=== PATIENT | male | born 1955 | race Caucasian/White ===

== ENCOUNTER 2017-06-27 07:04 | Inpatient (IN) ==
[2017-06-27] MEDS ORDERED: CeFAZolin Syr 2,000MG/20 ML 2,000 MG/20 ML SYRINGE IVPB ONE (07:19)
[2017-06-27] MEDS ORDERED: Albuterol 2.5 MG/3 ML NEBULIZER IH ONE (07:19)
[2017-06-27] MEDS ORDERED: Lidocaine -MPF 1% 2 ML VIAL ID ONE (07:19)
[2017-06-27] MEDS ORDERED: Heparin 1,000 UNITS/500 mL NS 1,000 ML ONE (07:21)
--- NOTE | 2017-06-27 07:28 | History & Physical Report ---
Date of Encounter: 06/27/17 Time of Encounter: 07:28
[2017-06-27] MEDS ORDERED: Ringers Solution, Lactated 1,000 ML IVC SCH (07:30)
[2017-06-27] MEDS ORDERED: Ketamine *HR* 500 MG/10 ML MDV ONE (07:32)
[2017-06-27] MEDS ORDERED: *HR* Propofol 200 MG/20 ML VIAL IVP ONE (07:32)
[2017-06-27] MEDS ORDERED: Lidocaine -MPF 2% 2 ML VIAL ONE ×4 (07:33→13:08)
[2017-06-27] MEDS ORDERED: *HR* Rocuronium Bromide 50 MG/5 ML VIAL ONE ×3 (07:33→13:09)
--- NOTE | 2017-06-27 07:42 | Anesthesia Evaluation PreOp ---
Date of Encounter: 06/27/17 Time of Encounter: 07:39 - Past History Planned Operation: left fem-pop Cardiac History: [place], HTN, Hyperlipidemia, Cardiac Surgery (CABG 1994), Other ( PAD) Pulmonary History: Smoker DIRECTOR CLINICAL DATA History: Denies Any Significant HX Other Medical History: Diabetes Type II Anesthesia History: No Prior Anesthetic Complications, Past Anesthesia Alcohol Use: none Drug use: none Medications and Allergies Tramadol HCl [Ultram] 50 mg PO QID PRN 05/24/17 [History] Aspirin [Ecotrin] 325 mg PO DAILY 06/16/17 [History] Carvedilol [Coreg] 25 mg PO BID 06/16/17 [History] Clopidogrel [Plavix] 75 mg PO DAILY 06/16/17 [History] Divalproex (12 HR) [Depakote (12 HR)] 500 mg PO DAILY 06/16/17 [History] Donepezil [Aricept] 10 mg PO DAILY 06/16/17 [History] Folic Acid 1 mg PO DAILY 06/16/17 [History] Furosemide [Lasix] 40 mg PO DAILY 06/16/17 [History] Insulin Glargine,Hum.rec.anlog [Lantus Solostar] 46 unit SQ HS 06/16/17 [History ] Isosorbide MONOnitrate (24 HR) [Imdur] 60 mg PO DAILY 06/16/17 [History] Lisinopril [Zestril] 5 mg PO DAILY 06/16/17 [History] Loratadine [Claritin] 10 mg PO DAILY 06/16/17 [History] Memantine HCl [Namenda Xr] 28 mg PO DAILY 06/16/17 [History] Nitroglycerin [Nitrostat] 0.4 mg SL DAILY PRN 06/16/17 [History] Ranitidine HCl [Zantac] 300 mg PO HS 06/16/17 [History] Sertraline [Zoloft] 100 mg PO DAILY 06/16/17 [History] Simvastatin [Zocor] 40 mg PO HS 06/16/17 [History] SitaGLIPtin [Januvia] 100 mg PO DAILY 06/16/17 [History] 3 Allergy/AdvReac Type Severity Reaction Status Date / Time No Known Allergies Allergy Verified 05/24/17 10:04 - Meds/Allergy Pre-op Review Medications Reviewed: Yes Allergies Reviewed: Yes Beta Blockers on Current Med List: Yes If Beta Blockers taken, Date/Time (Last Dose taken): today 0600hrs Anesthesia Results - Labs Laboratory Tests 03/07/17 06/07/17 06/07/17 14:30 10:24 10:24 Hgb Hct Plt Count PT 10.7 INR 1.0 APTT 25.4 L Sodium 138 Potassium 4.0 BUN 19 Creatinine 0.90 Hemoglobin A1c 6.5 H 06/07/17 10:24 Hgb 11.7 L Hct 35.1 L Plt Count 168 PT INR APTT Sodium Potassium BUN Creatinine Hemoglobin A1c - Imaging EKG: report reviewed (SINUS TACHYCARDIA RIGHT BUNDLE BRANCH BLOCK INFERIOR MYOCARDIAL INFARCTION, PROBABLY OLD) Additional studies: Echo 2014: LVEF 45%, hypokinesia lv, mild AR stress test 2017: large fixed inferior defect, negative for ischemia Anesthesia Exam Selected Entries 06/27/17 07:23 Temperature 99.0 F Pulse Rate 87 Respiratory Rate 16 Blood Pressure 130/78 O2 Sat by Pulse Oximetry 98 Weight: 107kg NPO (# of Hours): 8 - HEENT Pupil (Motor): EOMI Mallampati: II Teeth: Missing Oral Opening: Greater than 3 - DIRECTOR CLINICAL DATA LOC: Oriented DIRECTOR CLINICAL DATA Motor: Normal RUE, Normal LUE, Normal RLE, Normal LLE, Normal Face DIRECTOR CLINICAL DATA Sensory: Normal: RUE, LUE, RLE, LLE, Face - Cardiac Rhythm: Regular Murmur: None - Pulmonary Breath Sounds: bilateral Clear Respiratory Effort: Symmetrical Anesthesia Assess/Plan ASA Score: 3 Modified [place] Scale for Level of Consciousness: Cooperative, oriented, and tranquil Anesthetic Plan: General Monitoring Plan: Standard Monitors, A-Line Recovery Plan: PACU (discussed GA, lines and possible need for blood, agrees to proceed)
[2017-06-27] MEDS ORDERED: *HR* Succinylcholine 200 MG/10 ML VIAL IVP ONE (07:46)
[2017-06-27 07:55] LABS: Hemoglobin A1C 5.7 %
[2017-06-27] MEDS ORDERED: *HR* Midazolam HCl 2 MG/2 ML VIAL ONE (08:07)
[2017-06-27] MEDS ORDERED: *HR* FentaNYL (PF) 100 MCG/2 ML VIAL ONE (08:08)
[2017-06-27] MEDS ORDERED: Dexamethasone 4 MG/ML VIAL ONE (08:31)
[2017-06-27] MEDS ORDERED: *HR* Magnesium Sulfate 1 GM/2 ML VIAL ONE ×2 (08:46→12:08)
[2017-06-27] MEDS ORDERED: Esmolol 100 MG/10 ML VIAL IVP ONE (09:38)
[2017-06-27] MEDS ORDERED: *HR* Labetalol 20 MG/4 ML SYRINGE IVP PRN ×2 (09:43→17:55)
[2017-06-27] MEDS ORDERED: *HR* HYDROmorphone (PF) 1 MG/ML SYRINGE IVP PRN (09:43)
[2017-06-27] MEDS ORDERED: *HR* Promethazine 25 MG/ML VIAL IVP PRN (09:43)
[2017-06-27] MEDS ORDERED: *HR* Heparin 5,000 UNIT/ML VIAL ONE ×2 (10:12→12:21)
[2017-06-27] MEDS ORDERED: Ondansetron 4 MG/2 ML VIAL ONE (10:19)
[2017-06-27] MEDS ORDERED: Heparin 1,000 UNITS/500 mL NS 1,500 ML ONE (10:36)
[2017-06-27] MEDS ORDERED: Acetaminophen IV 1,000 MG/100 ML INFUS..BTL ONE (11:13)
[2017-06-27] MEDS ORDERED: *HR* Phenylephrine 10 MG/ML VIAL ONE (12:16)
[2017-06-27] MEDS ORDERED: *HR* HYDROmorphone 2 MG/ML SYRINGE ONE (13:49)
[2017-06-27] MEDS ORDERED: Ketorolac 30 MG/ML VIAL ONE (15:14)
[2017-06-27] MEDS ORDERED: Neostigmine Methylsulfate 3 MG/3 ML SYRINGE ONE (15:15)
--- NOTE | 2017-06-27 15:35 | Anesthesia Procedures ---
Date of Encounter: 06/27/17 Time of Encounter: 08:20 Procedures: Anesthesia - Arterial Line Consent obtained: written consent Time out performed: Yes Sedation: Versed (mg): 2 Sedation: Fentanyl (mcg): 100 Supplemental Oxygen via Nasal Cannula (L/min): 15 (GETA) Size (Gauge): 20 Length (inches): 1 3/4 Technique Used: sterile prep, guide wire technique, direct puncture technique Post-Procedure: line taped into place, dry sterile dressing placed Patient tolerated procedure: well, no complications Complications: none Site: Radial L Vitals: see anesthetic record
--- NOTE | 2017-06-27 16:04 | Operative Note ---
Date of procedure: 06/27/17 Pre-op diagnosis: PAD/non healing ulcer Post-op diagnosis: same Procedure: left iliac angiogram left iliac stent angioplasty with 7 x 80 mm self expanding stent with post stent balloon dilatation with 8 x 40 mm balloon. left tibial peroneal trunk and post tibial endarterectomy with bovine patch angioplasty left RECLAIMER endarterectomy with bovine patch angiolasty left femoral--> tibial peroneal trunk bypass with 6 mm PTFE Distaflo Complications: none Anesthesia: GETA Surgeon: Lance Bernstein Estimated blood loss (cc): 250 Specimen: none Condition: stable Disposition: PACU Procedure in Detail: History Scot Noyola is a 62-year-old white male who was seen in the outpatient clinic for nonhealing wound and ischemic pain in the left foot. He went on to have an angiogram and a right iliac artery stent angioplasty. High-grade left iliac lesion was noted as well as left superficial femoral and popliteal artery occlusive disease and tibial artery disease. He now comes to the operating room for left lower extremity revascularization to salvage the left lower extremity. Procedure After informed consent was obtained the patient was taken the operating room. General endotracheal anesthesia was established under arterial line pressure monitoring. The left lower extremity abdomen and right groin were sterilely prepped and draped. A timeout protocol was observed. An incision was made in the left groin to dissect and control the femoral system. The patient had a relatively deep vessel. The vessel at the femoral level and bifurcation was found to be densely calcified. No palpable pulse could be felt through the calcific vessel. An extensive dissection was performed and extension was made up into the external iliac artery. A limited area of soft tissue was noted on the anterior surface of the distal common femoral artery. It was judged that this would be an appropriate puncture site for the angiogram. An 18-gauge needle was then used to puncture the distal aspect of the anterior aspect of the left common femoral artery. A guidewire was inserted and this was followed by 6 [place] sheath and dilator. The dilator was removed and the sheath was aspirated and flushed. Under fluoroscopic control wires were then used to pass through the critical stenosis in the proximal external iliac and mid iliac area. After the wires were manipulated and confirmed that the true lumen was reentered distally patient was heparinized. The area was predilated with a 6 mm diameter balloon. After this was done a stent was selected. The stent was a 7 by 80 mm self-expanding stent. After deploying the stent and 8 x 40 balloon was inserted into the stent and gently distended the stent so it was fully expanded throughout its length. A completion Becki Janusz was performed which showed a widely patent left common and external iliac artery with a widely patent stent angioplasty site. Attention was then directed to the distal circulation. A [id number] popliteal incision was made to expose the below the knee popliteal and tibial peroneal trunk and tibial bifurcation vessels. This area showed marked inflammation. There is also signs of chronic venous insufficiency with subcutaneous edema. After a very labored and difficult dissection the vessels were controlled. There was marked disease in the popliteal and proximal tibial peroneal trunk. An endarterectomy was then performed of the tibial peroneal trunk and proximal posterior tibial artery through a longitudinal incision. After all the plaque was removed and appropriate backbleeding established from the posterior tibial artery a bovine pericardial patch angioplasty was performed over this area. With this accomplished a 6 mm PTFE graft that was a Distaflo variant was passed through a subsartorial space. The anastomosis was then made distally over the area of the just created endarterectomy and bovine pericardial patch angioplasty of the tibial peroneal trunk and posterior tibial artery. The area was inspected hemostasis and the graft was clamped. All the surrounding small vessels of the below-knee popliteal area were released to allow flow. Attention was then directed to the groin. A longitudinal arteriotomy was made over the common femoral artery. The vessel had severe and critical calcific plaque formation. Some of the plaque was actually loose. It was a extensive disease. The complete vessels not able to be endarterectomized due to the exposure limitation and the external iliac artery stent. However the orifice of the profunda femoris and superficial femoral artery were also endarterectomized. After the endarterectomy was performed and all loose debris was removed a bovine pericardial patch angioplasty was performed over the common femoral artery. The proximal anastomosis was then performed over this area of the patch angioplasty. This was sewn in end to side fashion using 6-0 Prolene suture. After appropriate backbleeding and flushing the graft was opened. The graft was then flushed distally. All clamps were then removed. Pulsatile flow was then restored into the popliteal and tibial system via the posterior tibial artery. The wound was irrigated and hemostasis achieved. Doppler signals were identified distally at the posterior tibial artery at the ankle. The incisions were irrigated again and then closed in layers with absorbable suture. There were no intraoperative complications. No specimens were submitted. The patient was extubated in the operating room and taken to the recovery room in stable condition. The color and temperature of the left foot was markedly improved by the time the patient left the operating room to the recovery room.
--- NOTE | 2017-06-27 16:32 | History & Physical Report ---
Date of Encounter: 06/27/17 Time of Encounter: 07:20 24 Hour HP Update - Instructions Instructions: If the History and Physical is less than 30 days old and was completed prior to A.M. admission and or procedure and has NOT been updated on calendar day of procedure please complete this update prior to performing procedure. - Update Patient reports changes in Medical Condition: No Changes in examination, assessment, or condition: No Changes in Medication: No Preop tests/diagnostics Reviewed: Yes Pre-Op MRSA Screen: Negative Surgery Remains Indicated: Yes Consent for Planned Operative Procedure(s) Verified: Yes - Pre-Operative Checklist Preoperative Checklist Indicated: Yes Prophylactic Antibiotic Ordered: Yes Home Medications Include Beta Juliana: Yes Beta Juliana Taken Today (Day of Surgery): Yes Beta Juliana Taken Yesterday (Day Prior to Surgery): Yes Is VTE Prophylaxis Indicated?: Yes
--- NOTE | 2017-06-27 16:58 | Anesthesia Evaluation Post Op ---
Date of Encounter: 06/27/17 Time of Encounter: 16:57 - Vital Signs Vital Signs: Vital Signs/O2 Sat, Most Current Temp Pulse Resp BP Pulse Ox 98.6 F 93 16 150/80 92 06/27/17 16:46 06/27/17 16:46 06/27/17 16:46 06/27/17 16:46 06/27/17 16:46 - Lungs Lungs: Clear Ascult./Percussion - Airway Airway: Non-obstructed - Cardiovascular Regular Rate - Mental Status Mental Status: Alert & Oriented, Answers Appropriately - Pain Pain Scale: 4 Pain Scale used: Numeric (1 - 10) - Nausea Vomiting Nausea Vomiting: Not Present - Hydration Hydration: NPO, Elliott catheter - Discharge PostOp Status: Transfer Patient to floor
[2017-06-27] MEDS ORDERED: Ondansetron 4 MG/2 ML VIAL IVP PRN (17:22)
[2017-06-27] MEDS ORDERED: Acetaminophen 325 MG TABLET PO PRN (17:22)
[2017-06-27] MEDS ORDERED: Naloxone 0.4 MG/ML INJ IVP PRN (17:22)
[2017-06-27] MEDS ORDERED: *HR* Morphine 2 MG/ML SYRINGE IVP PRN (17:22)
[2017-06-27] MEDS ORDERED: Nitroglycerin 0.4 MG TAB.SUBL SL PRN (17:22)
[2017-06-27] MEDS ORDERED: Famotidine 20 MG TABLET PO SCH (21:00)
[2017-06-27] MEDS ORDERED: Insulin DETEMIR 100 UNIT/ML X5UNITS SQ SCH (21:00)
[2017-06-27] MEDS: *HR* HYDROcodone/Acet 5/325 mg TABLET PO PRN (21:46)
[2017-06-27] MEDS: *HR* Morphine 2 MG/ML SYRINGE IVP PRN (23:34)
[2017-06-27] MEDS: CeFAZolin Premix DUPLEX 2,000 MG/50 ML BAG IVPB SCH (23:35)
[2017-06-28] MEDS: *HR* HYDROcodone/Acet 5/325 mg TABLET PO PRN ×2 (03:24→09:33)
[2017-06-28 04:41] LABS: Basophils % 0.3 %; Eosinophils % 0.1 %; Hematocrit 27.6 % (37.5-50.1); Hemoglobin 9.1 g/dL (12.9-16.9); Immature Granulocytes % 0.4 % (0-4); Lymphocytes # 2.3 K/mcL (0.6-4.6); Lymphocytes % 30.4 %; Mean Corpuscular Hemoglobin 31.7 pg (28.0-33.3); Mean Corpuscular Volume 96.2 fL (83.0-100.0); Mean Platelet Volume 9.9 fL (9.4-12.4); Monocytes # 0.8 K/mcL (0.0-1.3); Monocytes % 10.4 %; Neutrophils # 4.4 K/mcL (1.6-8.9); Platelet Count 143 K/mcL (140-400); Red Blood Count 2.87 M/mcL (4.19-5.50); Red Cell Distribution Width 14.2 % (11.5-14.5); Segmented Neutrophils % 58.4 %
[2017-06-28] MEDS: *HR* Morphine 2 MG/ML SYRINGE IVP PRN (04:45)
[2017-06-28 04:55] LABS: BUN/Creatinine Ratio 22 (6-26); Blood Urea Nitrogen 16 mg/dL (8-26); Calcium 8.1 mg/dL (8.6-10.8); Carbon Dioxide 22 mEq/L (19-29); Chloride 107 mEq/L (98-109); Glucose 134 mg/dL (70-99); Osmolality,Calculated 287 (280-300); Sodium 137 mEq/L (136-145); eGFR For African Americans > 60 (> 60); eGFR For Non-African Americans > 60 (> 60)
[2017-06-28 04:58] LABS: Potassium 4.4 mEq/L (3.5-4.5)
[2017-06-28] MEDS: Divalproex (24 HR) 500 MG TABLET PO SCH ×2 (07:52→10:37)
[2017-06-28] MEDS: CeFAZolin Premix DUPLEX 2,000 MG/50 ML BAG IVPB SCH ×2 (07:53→15:38)
[2017-06-28] MEDS ORDERED: Aspirin Enteric Coated 325 MG Tablet PO SCH (09:00)
[2017-06-28] MEDS ORDERED: Furosemide 40 MG TABLET PO SCH (09:00)
[2017-06-28] MEDS ORDERED: Loratadine 10 MG TABLET PO SCH (09:00)
[2017-06-28] MEDS ORDERED: Folic Acid 1 MG TABLET PO SCH (09:00)
[2017-06-28] MEDS ORDERED: *HR* SitaGLIPtin 100 MG TABLET PO SCH (09:00)
[2017-06-28] MEDS ORDERED: Cholecalciferol (D-3) 1,000 UNIT TABLET PO SCH (09:00)
[2017-06-28] MEDS ORDERED: (Armodafinil [Nuvigil] 250 MG) PO SCH (09:00)
[2017-06-28] MEDS ORDERED: Isosorbide MONOnitrate (24 HR) 60 MG TAB.ER.24H PO SCH (09:00)
[2017-06-28 11:34] VITALS: BP 114/62
--- NOTE | 2017-06-28 15:02 | Discharge Summary ---
Date of Encounter: 06/28/17 Time of Encounter: 15:00 - Discharge Diagnosis (1) PAD (peripheral artery disease) Priority: Primary Status: Acute Comments: Patient had nonhealing wound of left first toe. Patient was seen at podiatry and then referred to vascular surgery. Severe vascular occlusive disease. He underwent extensive bypass grafting in an attempt to salvage the left lower extremity. (2) CAD (coronary artery disease) Priority: Secondary Status: Chronic Comments: History of previous [place] and coronary artery disease. This is now managed medically. Qualifiers: Coronary Disease-Associated Artery/Lesion type: [place] artery [place] vs. transplanted heart: [place] heart Associated angina: with stable angina Qualified Code(s): I25.118 - Atherosclerotic heart disease of [place] coronary artery with other forms of angina pectoris (3) Sleep apnea in adult Priority: Secondary Status: Chronic Comments: Patient has history of sleep apnea and narcolepsy (4) Diabetes Priority: Secondary Status: Chronic Comments: Patient has diabetes management medically. Qualifiers: Diabetes mellitus type: type 1 Diabetes mellitus complication status: with circulatory complication Diabetes mellitus complication detail: with peripheral angiopathy without gangrene Qualified Code(s): E10.51 - Type 1 diabetes mellitus with diabetic peripheral angiopathy without gangrene - Discharge Medications Prescriptions: HYDROcodone/Acet 5/325 mg [[place] 5-325 mg] 1 tab PO Q6HR PRN #14 tablet PRN Reason: Moderate Pain Rivaroxaban [Xarelto] 20 mg PO QPM #30 tablet Home Medications: Carvedilol [Coreg] 25 mg PO BID 06/16/17 [History] Clopidogrel [Plavix] 75 mg PO DAILY 06/16/17 [History] Donepezil [Aricept] 10 mg PO DAILY 06/16/17 [History] Folic Acid 1 mg PO DAILY 06/16/17 [History] Furosemide [Lasix] 40 mg PO DAILY 06/16/17 [History] Insulin Glargine,Hum.rec.anlog [Lantus Solostar] 46 unit SQ HS 06/16/17 [History ] Isosorbide MONOnitrate (24 HR) [Imdur] 60 mg PO DAILY 06/16/17 [History] Lisinopril [Zestril] 5 mg PO DAILY 06/16/17 [History] Loratadine [Claritin] 10 mg PO DAILY 06/16/17 [History] Nitroglycerin [Nitrostat] 0.4 mg SL DAILY PRN 06/16/17 [History] Ranitidine HCl [Zantac] 300 mg PO HS 06/16/17 [History] Sertraline [Zoloft] 100 mg PO DAILY 06/16/17 [History] SitaGLIPtin [Januvia] 100 mg PO DAILY 06/16/17 [History] Armodafinil [Nuvigil] 250 mg PO DAILY 06/27/17 [History] Cholecalciferol (D-3) [Vitamin D] 1,000 unit PO DAILY 06/27/17 [History] Divalproex (24 HR) [Depakote ER (24 HR)] 2,500 mg PO DAILY 06/27/17 [History] Memantine HCl 10 mg PO BID 06/27/17 [History] Simvastatin [Zocor] 80 mg PO HS 06/27/17 [History] HYDROcodone/Acet 5/325 mg [[place] 5-325 mg] 1 tab PO Q6HR PRN #14 tablet [Rx] Rivaroxaban [Xarelto] 20 mg PO QPM #30 tablet 06/28/17 [Rx] Allergies/Adverse Reactions: 3 Allergy/AdvReac Type Severity Reaction Status Date / Time No Known Allergies Allergy Verified 06/27/17 08:13 Date of admission: 06/27/17 16:41 Primary care physician: Estuardo Hunter DO Consults: 06/27/17 17:22 Consult to Occupational Therapy [CONS] Routine Comment: Evaluate, develop and implement POC Reason for Consult: s/p left le bpg Consult to Physical Therapy [CONS] Routine Comment: Evaluate, develop and implement POC Reason for Consult: s/p left le bypass Consult to Systems Software Designer [CONS] Routine Reason for SW Consult: home health needs vs short term rehab Procedure(s) Performed: Left iliac artery stent angioplasty, left common femoral artery endarterectomy with patch angioplasty, left tibial peroneal trunk and posterior tibial artery endarterectomy with patch angioplasty, and left femoral to tibial peroneal trunk bypass graft with 6 mm PTFE Discharging clinician: Lance Bernstein Anticipated date of discharge: 06/28/17 - Patient Status Disposition: Transfer Inpatient Rehab Fac Condition: Fair Functional capacity at discharge: uses cane/walker Overall status at discharge: patient is not back to baseline - Discharge Instructions Instructions: Diabetic Foot Care (DC), Meal Planning with Diabetes Exchanges ( DC), Peripheral Artery Disease (DC) Follow Up With: Brendon Gallagher CNP [Advanced Practice Nurse] - (PATIENT IS GOING TO REHAB NO PCP APPOINTMENT NEEDED) Lance Bernstein MD [Partnered Physician] - 07/12/17 1:30 pm Additional Instructions: Remove dressings from left lower extremity in 2 days. Keep surgical incisions dry for a total of 5 days following surgery. Resume usual home medications with the exception of stopping the aspirin. Patient will begin Xarelto 20 mg every afternoon because of synthetic graft to distal vessel in left leg. Patient is to actively participate in physical and occupational therapy. Patient is to keep left lower extremity elevated while seated to reduce edema of left lower extremity following bypass grafting. Patient is to use incentive spirometer 10 times an hour while awake for the next 2 weeks. Patient is to continue use CPAP machine while sleeping. - Diet and Activity Activity: as per physical therapy Diet: diabetic diet - Hospital Course Hospital course: Mr. Noyola is a 62 year old male With severe and limb threatening ischemia of the left lower extremity. He underwent an extensive operation requiring angioplasty and endarterectomies and bypass grafting. He did not have a usable vein and so therefore synthetic was used. Because of the use of synthetic E now needs anticoagulation. Xarleto was selected for this patient. The patient developed a pink and warm left foot. He had excellent Doppler signals 3. The incisions were clean and dry. There are healing well. The patient was felt fit and ready for transfer to an extended care facility for rehabilitation purposes on postoperative day #1. - Time Spent with Patient Total time spent providing and/or coordinating discharge services: Exam General: Present: Conversant, No Apparent Distress HEENT: Present: Atraumatic Cardiac: Present: Reg Rate and Rhythm Lungs: Present: Normal Breath Sounds Neuro: Present: Alert and responsive, No focal deficits noted Abdomen: Present: Soft Vascular: Present: Normal capillary refill, Surgical incisions (Clean and dry), Other (Doppler signals 3 at left ankle) - VTE Documentation of Mechanical Device: Intermittent pneumatic compression device
--- NOTE | 2017-06-28 15:16 | Physician Discharge Referral ---
ExtendedCare Referral Info Transfer To: snf Provider in Charge: Dr. Bernstein Provider in Charge after Transfer: PCP Institutional Level of Care: Skilled - Diagnosis (1) PAD (peripheral artery disease) Priority: Primary Status: Acute (2) CAD (coronary artery disease) Priority: Secondary Status: Chronic (3) Sleep apnea in adult Priority: Secondary Status: Chronic (4) Diabetes Priority: Secondary Status: Chronic - Transfer Medications Prescriptions: HYDROcodone/Acet 5/325 mg [[place] 5-325 mg] 1 tab PO Q6HR PRN #14 tablet PRN Reason: Moderate Pain Rivaroxaban [Xarelto] 20 mg PO QPM #30 tablet Home Medications: Carvedilol [Coreg] 25 mg PO BID 06/16/17 [History] Clopidogrel [Plavix] 75 mg PO DAILY 06/16/17 [History] Donepezil [Aricept] 10 mg PO DAILY 06/16/17 [History] Folic Acid 1 mg PO DAILY 06/16/17 [History] Furosemide [Lasix] 40 mg PO DAILY 06/16/17 [History] Insulin Glargine,Hum.rec.anlog [Lantus Solostar] 46 unit SQ HS 06/16/17 [History ] Isosorbide MONOnitrate (24 HR) [Imdur] 60 mg PO DAILY 06/16/17 [History] Lisinopril [Zestril] 5 mg PO DAILY 06/16/17 [History] Loratadine [Claritin] 10 mg PO DAILY 06/16/17 [History] Nitroglycerin [Nitrostat] 0.4 mg SL DAILY PRN 06/16/17 [History] Ranitidine HCl [Zantac] 300 mg PO HS 06/16/17 [History] Sertraline [Zoloft] 100 mg PO DAILY 06/16/17 [History] SitaGLIPtin [Januvia] 100 mg PO DAILY 06/16/17 [History] Armodafinil [Nuvigil] 250 mg PO DAILY 06/27/17 [History] Cholecalciferol (D-3) [Vitamin D] 1,000 unit PO DAILY 06/27/17 [History] Divalproex (24 HR) [Depakote ER (24 HR)] 2,500 mg PO DAILY 06/27/17 [History] Memantine HCl 10 mg PO BID 06/27/17 [History] Simvastatin [Zocor] 80 mg PO HS 06/27/17 [History] HYDROcodone/Acet 5/325 mg [[place] 5-325 mg] 1 tab PO Q6HR PRN #14 tablet [Rx] Rivaroxaban [Xarelto] 20 mg PO QPM #30 tablet 06/28/17 [Rx] Allergies/Adverse Reactions: 3 Allergy/AdvReac Type Severity Reaction Status Date / Time No Known Allergies Allergy Verified 06/27/17 08:13 - Respiratory Orders Other (Patient may use CPAP machine for sleep apnea/narcolepsy) Smoking Cessation: Smoking cessation has been advised. For more information, call the [employer] Quit Line at 9-890-FBWH-NOW. - Ancillary Orders May use pressure relief devices daily prn, May consult with Dentist, Market Analysis Director, Patient Clerical Assistant PRN - Advance Directives Code Status: Full Code - Mobility Orders Chair, Ambulate - Rehabiliation Orders Rehab Potential: Fair Rehab Orders: ROM Exercises, Evaluation for Physical Therapy, Evaluation for Occupational Therapy - Treatments Skin tear care topically daily PRN per policy - Diet Orders Cardiac CERTIFICATION: I certify that the transfer of the above named patient to an Extended Care Facility is necessary for the continuing treatment of the diagnosis listed. The above information is true and accurate reflection of patient's current condition. Confidential - Redisclosure prohibited without a patient's written consent.
[2017-06-28] MEDS ORDERED: *HR* Rivaroxaban 10 MG TABLET PO SCH (17:00)
== END 2017-06-28 16:15 | DRG 254 ==
LOC: SAMDAY 07:04 → 2NNU 16:41
PROVIDERS: ADMIT Surgery Vascular Surgery; ATTEND Surgery Vascular Surgery

== ENCOUNTER 2017-07-14 11:28 | Observation (INO) ==
--- NOTE | 2017-07-14 11:43 | Emergency Department Note ---
Disposition Clinical Impression: Hypoxia, Elevated troponin Dyspnea Qualifiers: Dyspnea type: unspecified Qualified Code(s): R06.00 - Dyspnea, unspecified Acute exacerbation of CHF (congestive heart failure) Qualifiers: Congestive heart failure type: unspecified congestive heart failure type Qualified Code(s): I50.9 - Heart failure, unspecified Disposition: Admitted As Inpatient Condition: Good Time of Disposition: 21:30 General Adult HPI - General Stated complaint: WILL Time Seen by Provider: 07/14/17 11:32 Source: patient, EMS Mode of arrival: EMS Nursing Notes Reviewed: Yes Vital Signs Reviewed: Yes - History of Present Illness HPI Narrative: 62-year-old male history of CAD with stents and CABG presents to the ED via EMS for difficulty breathing and chest pain. The call was for chest pain and difficulty breathing, patient is currently chest pain free. He was found hypoxic 70% and placed on the CPAP prior to arrival here. Patients oxygen saturation is 94%. Were able to transition him off the CPAP to a oxygen mask where he maintains good oxygenation. He states this morning at 630 he had sudden shortness of breath resolved with time. He had 3 episodes prior to call in the squad. At this time he now denies any chest pain and states he mistakenly for the dyspnea. He denies any other complaints such as recent illness, fever, cough. Denies any abdominal pain, nausea or vomiting. States he has history of blood clots but appears to be more peripheral arterial disease as he has multiple surgical sites on his leg for stents possible bypass. Chest pain workup initiated. - Related Data Home Medications Medication Instructions Recorded Confirmed Carvedilol [Coreg] 25 mg PO BID 06/16/17 07/14/17 Clopidogrel [Plavix] 75 mg PO DAILY 06/16/17 07/14/17 Donepezil [Aricept] 10 mg PO DAILY 06/16/17 07/14/17 Folic Acid 1 mg PO DAILY 06/16/17 07/14/17 Furosemide [Lasix] 40 mg PO DAILY 06/16/17 07/14/17 Insulin Glargine,Hum.rec.anlog 46 unit SQ HS 06/16/17 07/14/17 [Lantus Solostar] Isosorbide MONOnitrate (24 HR) 60 mg PO DAILY 06/16/17 07/14/17 [Imdur] Lisinopril [Zestril] 5 mg PO DAILY 06/16/17 07/14/17 Loratadine [Claritin] 10 mg PO DAILY 06/16/17 07/14/17 Nitroglycerin [Nitrostat] 0.4 mg SL DAILY PRN 06/16/17 07/14/17 Ranitidine HCl [Zantac] 300 mg PO HS 06/16/17 07/14/17 Sertraline [Zoloft] 100 mg PO DAILY 06/16/17 07/14/17 SitaGLIPtin [Januvia] 100 mg PO DAILY 06/16/17 07/14/17 Armodafinil [Nuvigil] 250 mg PO DAILY 06/27/17 07/14/17 Cholecalciferol (D-3) [Vitamin D] 1,000 unit PO DAILY 06/27/17 07/14/17 Divalproex (24 HR) [Depakote ER 2,500 mg PO DAILY 06/27/17 07/14/17 (24 HR)] Memantine HCl 10 mg PO BID 06/27/17 07/14/17 Simvastatin [Zocor] 80 mg PO HS 06/27/17 07/14/17 Collagenase Oint [Santyl] 1 appl TP DAILY 07/14/17 07/14/17 Previous Rx's Medication Instructions Recorded HYDROcodone/Acet 5/325 mg [[place] 1 tab PO Q6HR PRN #14 tablet 06/28/17 5-325 mg] Rivaroxaban [Xarelto] 20 mg PO QPM #30 tablet 06/28/17 Allergies Allergy/AdvReac Type Severity Reaction Status Date / Time No Known Allergies Allergy Verified 06/27/17 08:13 All systems ED: reviewed and negative except as stated. Review of Systems: As Per HPI Constitutional: Denies: fever, chills ENT ED: Denies: congestion, dysphagia Cardiovascular: Reports: chest pain Respiratory: Reports: cough, dyspnea Gastrointestinal: Denies: abdominal pain, nausea, vomiting Genitourinary: Denies: urgency, dysuria Musculoskeletal: Denies: back pain, neck pain Integumentary: Denies: rash, abrasion Neurological: Denies: headache Past Medical History - Past Medical History Attestation: Yes The following information was validated with the patient. Source: patient Medical history: Reports: CHF, coronary artery disease, diabetes, hyperlipidemia , hypertension, myocardial infarction, TIA, valvular heart disease Surgical history: Reports: arthroscopy, coronary bypass (CABG) Psychiatric history: Reports: anxiety, depression - Social History Smoking Status: Current every day smoker Smokeless Tobacco Status: No Alcohol use: Reports: none Drug use: Reports: none Physical Exam - General Limitations: no limitations General appearance: alert, in no apparent distress - Head Head exam: atraumatic, normocephalic, normal inspection - Eye Eye exam: Present: normal appearance, PERRL, EOMI - ENT ENT exam: normal exam, normal oropharynx, mucous membranes moist - Neck Neck exam: Present: normal inspection, full ROM, trachea midline - Chest Chest inspection: Present: normal inspection, symmetric chest wall rise, other ( Midsternal scar consistent with CABG) - Expanded Respiratory Exam Location: rhonchi: Left, Right - Cardiovascular Cardiovascular exam: Present: regular rate, normal rhythm, normal heart sounds - Expanded Cardiovascular Exam Peripheral pulses: 2+: posterior tibialis (R), posterior tibialis (L) - Abdominal Exam Abdominal exam: Present: soft (Obese), Non-Tender, normal bowel sounds. Absent : tenderness, distention, guarding, rebound, rigidity - Extremities Exam Extremities exam: Present: normal inspection, full ROM, pedal edema (+2 BILATERAL), other (new healing scar to left proximal lower leg consistent with graft, other multiple healed scar from prior grafts). Absent: tenderness, calf tenderness - Back Exam Back exam: Present: normal inspection, full ROM. Absent: tenderness - Neurological Exam Neurological exam: Present: alert, oriented X3 - Skin Skin exam: Present: warm, dry, intact, normal color. Absent: cyanosis, diaphoresis Course Course Narrative: Patient presents with complaints of chest pressure and dyspnea. Was found hypoxic by EMS squad. On arrival oxygen saturations are adequate 94%. He was on CPAP on arrival. We transitioned him to nasal cannula and maintain good oxygen saturations. At this time he denies any chest pain. History of multiple stents in a bypass. He reports shortness of breath. On auscultation there is rails in the bilateral bases. He appears fluid overloaded. Swelling to bilateral lower extremities. He has some significant scars to lower extremities consistent with peripheral arterial disease. Concern for CHF exacerbation workup initiated. - Reevaluation(s) Reevaluation #1: Chest x-rays consistent with congestive heart failure. BNP is significantly elevated 2139. His troponins also elevated 0.22. He persistently has elevation of his troponins. Unsure if this is demand ischemia from his acute exacerbation of his heart failure. EKG does not reveal any ST elevations consistent with STEMI. On initial EKG and repeat there are some depressions seen and V2 V3. Patient diaries with 40 mg IV Lasix. No need admission for his elevated troponin and likely acute exacerbation of congestive heart failure. Since he was hypoxic initially will also evaluate for pulmonary embolism. States he has a history of blood clots but when I specify blood clots to the lung or deep vein thrombosis he denies. I suspect these blood clots are more the peripheral arterial. CT of the chest ordered as he is high risk. Reevaluation #2: CT of the chest revealed no pulmonary embolism. Findings are consistent with congestive heart failure. Patient will be admitted. Will hold on heparin at this time as he chronically has elevation of troponin around 0.17. The hospitalist is in agreement with this plan. Will continue to trend his troponin. Again he denies any chest pain initially as he states he mistaken it for his dyspnea. - Consultations Consultation #1: Spoke with on-call hospitalist destiny Castorena to admit for hypoxia, dyspnea, acute exacerbation of CHF, elevated troponin. No further orders at this time Time: 15:05 Vital Signs Temperature 94.6 F L 07/14/17 11:34 Pulse Rate 110 07/14/17 11:34 Respiratory Rate 26 07/14/17 11:34 Blood Pressure 152/105 07/14/17 11:34 O2 Sat by Pulse Oximetry 97 07/14/17 11:34 Temperature 97.6 F 07/14/17 17:31 Pulse Rate 93 07/14/17 17:31 Respiratory Rate 18 07/14/17 17:31 Blood Pressure 125/76 07/14/17 17:31 O2 Sat by Pulse Oximetry 98 07/14/17 21:14 Oxygen Delivery Oxygen Delivery Venti Mask Medical Decision Making - MDM Narrative Medical decision making narrative: Patient was discussed with my attending physician who agrees with ED management and final disposition. They independently evaluated the patient. Please refer to their attestation to this encounter for additional information. This note was generated by [employer] voice recognition software and as a result grammatical or spelling errors may occur using this program. - Medical Records Medical records reviewed: Yes I reviewed the patient's medical records. - Lab Data Lab results reviewed: Yes I reviewed the patient's lab results. Result diagrams: 07/14/17 11:43 07/14/17 11:43 Lab Results 07/14/17 07/14/17 07/14/17 Range/Units 11:43 11:43 11:43 WBC 6.9 (4.3-11.1) K/mcL RBC 3.25 L (4.19-5.50) M/mcL Hgb 10.1 L (12.9-16.9) g/dL Hct 33.1 L (37.5-50.1) % MCV 101.8 H (83.0-100.0) fL MCH 31.1 (28.0-33.3) pg MCHC 30.5 L (31.6-35.5) g/dL RDW 15.7 H (11.5-14.5) % Plt Count 227 (140-400) K/mcL MPV 9.3 L (9.4-12.4) fL Immature Gran % 1.4 (0-4) % Seg Neutrophils % 63.0 % Lymphocytes % 28.0 % Monocytes % 7.1 % Eosinophils % 0.1 % Basophils % 0.4 % Neutrophils # 4.4 (1.6-8.9) K/mcL Lymphocytes # 1.9 (0.6-4.6) K/mcL Monocytes # 0.5 (0.0-1.3) K/mcL Eosinophils # 0.0 (0.0-0.6) K/mcL Basophils # 0.0 (0.0-0.2) K/mcL Sodium 139 (136-145) mEq/L Potassium 4.9 H (3.5-4.5) mEq/L Chloride 102 (98-109) mEq/L Carbon Dioxide 17 L (19-29) mEq/L BUN 20 (8-26) mg/dL Creatinine 0.84 (0.72-1.25) mg/dL Est GFR ( Amer) > 60 (> 60) Est GFR (Non-Af Amer) > 60 (> 60) BUN/Creatinine Ratio 24 (6-26) Glucose 314 H (70-99) mg/dL Calculated Osmolality 303 H (280-300) Calcium 8.6 (8.6-10.8) mg/dL Troponin I 0.22 H* (0-0.03) ng/mL B-Natriuretic Peptide (0-100) pg/mL 07/14/17 Range/Units 11:43 WBC (4.3-11.1) K/mcL RBC (4.19-5.50) M/mcL Hgb (12.9-16.9) g/dL Hct (37.5-50.1) % MCV (83.0-100.0) fL MCH (28.0-33.3) pg MCHC (31.6-35.5) g/dL RDW (11.5-14.5) % Plt Count (140-400) K/mcL MPV (9.4-12.4) fL Immature Gran % (0-4) % Seg Neutrophils % % Lymphocytes % % Monocytes % % Eosinophils % % Basophils % % Neutrophils # (1.6-8.9) K/mcL Lymphocytes # (0.6-4.6) K/mcL Monocytes # (0.0-1.3) K/mcL Eosinophils # (0.0-0.6) K/mcL Basophils # (0.0-0.2) K/mcL Sodium (136-145) mEq/L Potassium (3.5-4.5) mEq/L Chloride (98-109) mEq/L Carbon Dioxide (19-29) mEq/L BUN (8-26) mg/dL Creatinine (0.72-1.25) mg/dL Est GFR ( Amer) (> 60) Est GFR (Non-Af Amer) (> 60) BUN/Creatinine Ratio (6-26) Glucose (70-99) mg/dL Calculated Osmolality (280-300) Calcium (8.6-10.8) mg/dL Troponin I (0-0.03) ng/mL B-Natriuretic Peptide 2139 H (0-100) pg/mL - Radiology Data Radiology results reviewed: Yes I reviewed the patient's radiology results. Chest X-Ray 07/14/17 11:32 IMPRESSION: Congestive heart failure D/ / Ken Diaz MD / Ken Diaz MD Interpreting Provider: Ken Diaz MD Chest CTA 07/14/17 12:38 IMPRESSION: No evidence of pulmonary embolism. Bilateral airspace disease, septal thickening and pleural effusions are favored to represent pulmonary edema. Superimposed infectious/inflammatory changes remain a possibility as well. D/ / Jesus Alberto Aguliar MD / Jesus Alberto Aguilar MD Interpreting Provider: Jesus Alberto Aguilar MD - EKG Data EKG #1 EKG attestation: Yes I reviewed and interpreted this EKG. EKG results narrative: EKG performed 1130 sinus tachycardia 1 10 bpm, right bundle branch block, there ST depressions seen in the septal leads V2, V3 and before. Q waves are seen in inferior leads. Compared to old EKG 06/14/[address] changes are more pronounced. Patient's troponin is elevated. A repeat EKG performed 123 reveals normal sinus rhythm 97 bpm with almost minimal ST depressions <2 mm Attestation Statement - Attestation Attestation: I, Scot Montez, examined this patient and my medical decision-making was reviewed with the BRICK GRADER/PA/Advanced Practice Nurse/Resident Physician. I agree with the documented findings, disposition and treatment plan as described except to the extent set forth below. 62-year-old male presents emergency Department with concerns of acute onset shortness of breath. Patient satting 70% per EMS on their arrival. He was started on CPAP and improved significantly. Patient has a history congestive heart failure, taking Lasix 40 mg by mouth daily. Patient denied chest pain. EKG showed sinus tachycardia with a rate of 110 with a right bundle branch block with ST depression in V2, V3 which was minimally changed from previous EKG. Repeat EKG showed a normal sinus rhythm with a rate of 97 with a continued right bundle branch block however the ST depression in V2 V3 had improved. Patient had mild elevation of his troponin at 0.22. He does have a history of mildly elevated troponins in the past. Patient will be admitted to the hospital for further care and evaluation.
[2017-07-14 11:51] LABS: Basophils % 0.4 %; Eosinophils % 0.1 %; Hematocrit 33.1 % (37.5-50.1); Hemoglobin 10.1 g/dL (12.9-16.9); Immature Granulocytes % 1.4 % (0-4); Lymphocytes # 1.9 K/mcL (0.6-4.6); Mean Corpuscular HGB Conc 30.5 g/dL (31.6-35.5); Mean Corpuscular Hemoglobin 31.1 pg (28.0-33.3); Mean Corpuscular Volume 101.8 fL (83.0-100.0); Mean Platelet Volume 9.3 fL (9.4-12.4); Monocytes # 0.5 K/mcL (0.0-1.3); Monocytes % 7.1 %; Neutrophils # 4.4 K/mcL (1.6-8.9); Platelet Count 227 K/mcL (140-400); Red Blood Count 3.25 M/mcL (4.19-5.50); Red Cell Distribution Width 15.7 % (11.5-14.5)
[2017-07-14 12:05] LABS: BUN/Creatinine Ratio 24 (6-26); Blood Urea Nitrogen 20 mg/dL (8-26); Calcium 8.6 mg/dL (8.6-10.8); Carbon Dioxide 17 mEq/L (19-29); Chloride 102 mEq/L (98-109); Glucose 314 mg/dL (70-99); Osmolality,Calculated 303 (280-300); Potassium 4.9 mEq/L (3.5-4.5); Sodium 139 mEq/L (136-145); eGFR For African Americans > 60 (> 60); eGFR For Non-African Americans > 60 (> 60)
[2017-07-14] MEDS ORDERED: Furosemide 40 MG/4 ML VIAL IVP ONE (14:44)
[2017-07-14] MEDS ORDERED: Nitroglycerin 0.4 MG TAB.SUBL SL PRN (15:27)
[2017-07-14] MEDS ORDERED: *HR* HYDROcodone/Acet 5/325 mg TABLET PO PRN (15:27)
[2017-07-14] MEDS ORDERED: *HR* Dextrose 50 % in Water (Syg) 50 ML SYRINGE IVP PRN (15:30)
[2017-07-14] MEDS ORDERED: D5% in Water 1,000 ML IVC PRN (15:30)
[2017-07-14] MEDS ORDERED: Dextrose Gel 15 GM PO PRN ×2 (15:30)
[2017-07-14] MEDS ORDERED: Acetaminophen 325 MG TABLET PO PRN (16:05)
[2017-07-14] MEDS ORDERED: Naloxone 0.4 MG/ML INJ IVP PRN (16:05)
[2017-07-14] MEDS ORDERED: Ondansetron 4 MG/2 ML VIAL IVP PRN (16:05)
--- NOTE | 2017-07-14 16:54 | Internal Med History&Physical ---
Date of Encounter: 07/14/17 Time of Encounter: 16:00 Assessment and Plan (1) CHF (congestive heart failure) Current visit: Yes Status: Acute Patient has not been taking Lasix for the past 24 hours he experienced hypoxia at SPO2 of 70% requiring CPAP. Chest x-ray did reveal vascular congestion and pulmonary edema. BNP was over 2000. He was given IV Lasix in the ER which we will continue diuresis overnight We will monitor her intake output and daily weights Fluid restriction 1500 mL's Low-sodium diet We will continue with oxygen will place on BiPAP overnight to help with congestion Qualifiers: Congestive heart failure type: unspecified congestive heart failure type Congestive heart failure chronicity: acute on chronic Qualified Code(s): I50.9 - Heart failure, unspecified (2) Acute and chronic respiratory failure Current visit: Yes Status: Acute Most likely secondary to acute heart failure. Patient has not taken Lasix in the past 24 hours. CTA chest was negative for PE chest x-ray indicative of heart failure. We will continue with oxygen in place patient on BiPAP overnight to sustain sats Qualifiers: Respiratory failure complication: hypoxia Qualified Code(s): J96.21 - Acute and chronic respiratory failure with hypoxia (3) COPD (chronic obstructive pulmonary disease) Current visit: Yes Status: Acute We will continue with bronchodilators and oxygen Qualifiers: COPD type: unspecified COPD Qualified Code(s): J44.9 - Chronic obstructive pulmonary disease, unspecified (4) Diabetes mellitus Current visit: Yes Status: Acute Accu-Cheks before meals at bedtime with sliding scale insulin Diabetic diet Qualifiers: Diabetes mellitus type: type 2 Diabetes mellitus complication status: with circulatory complication Diabetes mellitus complication detail: with other circulatory complications Diabetes mellitus penitentiary insulin use: without termite control technician use Qualified Code(s): E11.59 - Type 2 diabetes mellitus with other circulatory complications (5) Diabetic foot ulcer Current visit: No Status: Acute he is being followed by Dr. Jennings which we will continue as outpatient consult as needed Qualifiers: Diabetic foot ulcer location: toe Diabetes mellitus type: type 2 Laterality: left Non-pressure ulcer stage: with fat layer exposed Qualified Code(s): E11.621 - Type 2 diabetes mellitus with foot ulcer; L97.522 - Non- pressure chronic ulcer of other part of left foot with fat layer exposed; L97.522 - Non-pressure chronic ulcer of other part of left foot with fat layer exposed; L97.522 - Non-pressure chronic ulcer of other part of left foot with fat layer exposed; L97.522 - Non-pressure chronic ulcer of other part of left foot with fat layer exposed (6) PAD (peripheral artery disease) Current visit: No Status: Acute He underwent a left iliac stent and left femoropopliteal per Dr. Rivera in June we will continue with Plavix - follow up as outpatient and consult as needed (7) CAD (coronary artery disease) Current visit: No Status: Chronic We will continue with Plavix statin beta carmelita and carlos a Continue with nitrates-Imdur and nitroglycerin as needed for chest pain Oxygen as needed Qualifiers: Coronary Disease-Associated Artery/Lesion type: [place] artery [place] vs. transplanted heart: [place] heart Associated angina: with stable angina Qualified Code(s): I25.118 - Atherosclerotic heart disease of [place] coronary artery with other forms of angina pectoris (8) Elevated troponin Current visit: Yes Status: Acute 1 initial troponin was 0.22 repeated troponin 0.53. Patient is not having any chest pain EKG with sinus rhythm right bundle branch block there is some ST depression in septal leads however this is all present in previous EKGs were no changes. Nuclear stress test completed 06/22/2017 was nondiagnostic for ischemia due to baseline nonspecific ST and T changes large size severe intensity mostly fixed inferior inferolateral anterolateral and apex defect suggestive of a prior infarct. There is mild reversibility of the mid to apical anterior lateral segments suggestive of kalani- Infarct ischemia. I did speak with Dr. Erickson cardiology via telephone concerning elevated troponins, we did review nuclear stress test report and advised patient does not have any chest pain or no new changes on EKG he is on Xarelto. He felt that this is mosty rt demand ischemia from CHF and to continue to diurese patient He advised to continue with current treatment and that they would not add anything different. We will continue to monitor troponins and EKG. And consult cardiology if there are any changes in EKG or patient develops chest pain (9) DVT prophylaxis Current visit: Yes Status: Acute Patient is on Xarelto Internal Medicine - H&P: HPI Chief complaint: SOB Admitted From: Emergency Dept Plans for Post Hospital Care: Home History of present illness: Mr. Noyola is a 62 year old male past uncle history of CAD with CABG (1994 [place]) CHF diabetes hyperlipidemia hypertension TIA valvular heart disease PAD. The patient underwent left iliac artery stent angioplasty left femoropopliteal per Dr. Rivera and was discharged from this facility 06/28/17 to extended care facility for rehabilitation. He was discharged from the rehabilitation to home yesterday patient states that he did not take his oral medications yesterday or this morning. This a.m. he began to experience dyspnea despite the use of CPAP. He denies any cough fever abdominal pain nausea or vomiting. He states he did have some chest pressure on inspiration however it resolved on its own. Upon arrival EMS patient was hypoxic with SPO2 70%. He was transported to ER for reevaluation. According records lab work did reveal an elevated BNP as well as troponin. Leukocytosis. Chest x-ray pulmonary vascular congestion and pulmonary edema indicative of CHF. CTA no PE He was transitioned off BiPAP onto oxygen mask and maintained sats on 5 L. He was given Lasix and has been A for further workup and evaluation. Presently he denies any chest pain or shortness of breath he does not appear to be any rest or distress at this time. He is hemodynamically stable. I did review this case with Dr. Gunn agrees with plan. Past Med Surg Social Fam HX - Past Medical History Medical history: CHF, coronary artery disease, diabetes, hyperlipidemia, hypertension, myocardial infarction, TIA, valvular heart disease Psychiatric history: anxiety, depression - Past Surgical History Surgical History: arthroscopy, coronary bypass (CABG) - Social History Smoking Status: Current every day smoker Smokeless Tobacco Status: No Alcohol use: none Drug use: none - Family History Mother Living Status: Still Living Hx Family Cardiac Disorders: Yes (heart disease ) Father Living Status: Still Living Hx Family Cardiac Disorders: Yes (cardiac disease ) Internal Medicine - H&P: Meds Carvedilol [Coreg] 25 mg PO BID 06/16/17 [History] Clopidogrel [Plavix] 75 mg PO DAILY 06/16/17 [History] Donepezil [Aricept] 10 mg PO DAILY 06/16/17 [History] Folic Acid 1 mg PO DAILY 06/16/17 [History] Furosemide [Lasix] 40 mg PO DAILY 06/16/17 [History] Insulin Glargine,Hum.rec.anlog [Lantus Solostar] 46 unit SQ HS 06/16/17 [History ] Isosorbide MONOnitrate (24 HR) [Imdur] 60 mg PO DAILY 06/16/17 [History] Lisinopril [Zestril] 5 mg PO DAILY 06/16/17 [History] Loratadine [Claritin] 10 mg PO DAILY 06/16/17 [History] Nitroglycerin [Nitrostat] 0.4 mg SL DAILY PRN 06/16/17 [History] Ranitidine HCl [Zantac] 300 mg PO HS 06/16/17 [History] Sertraline [Zoloft] 100 mg PO DAILY 06/16/17 [History] SitaGLIPtin [Januvia] 100 mg PO DAILY 06/16/17 [History] Armodafinil [Nuvigil] 250 mg PO DAILY 06/27/17 [History] Cholecalciferol (D-3) [Vitamin D] 1,000 unit PO DAILY 06/27/17 [History] Divalproex (24 HR) [Depakote ER (24 HR)] 2,500 mg PO DAILY 06/27/17 [History] Memantine HCl 10 mg PO BID 06/27/17 [History] Simvastatin [Zocor] 80 mg PO HS 06/27/17 [History] HYDROcodone/Acet 5/325 mg [Tamiment 5-325 mg] 1 tab PO Q6HR PRN #14 tablet [Rx] Rivaroxaban [Xarelto] 20 mg PO QPM #30 tablet 06/28/17 [Rx] Collagenase Oint [Santyl] 1 appl TP DAILY 07/14/17 [History] 3 Allergy/AdvReac Type Severity Reaction Status Date / Time No Known Allergies Allergy Verified 06/27/17 08:13 All Systems PM: A 10-system review of systems was performed and is negative for pertinent findings except as documented above in the HPI. - Constitutional Constitutional: fatigue, no chills, no fever(s), no night sweats - EENT Eyes: no change in vision, no discharge, no pain, no photophobia Nose, mouth and throat: no dysphagia, no nasal discharge, no neck pain, no sore throat - Cardiovascular Cardiovascular ROS IM: dyspnea on exertion, no chest pain, no diaphoresis, no dyspnea, no lightheadedness, no palpitations, no syncope - Respiratory Respiratory: dyspnea, dyspnea on exertion - Gastrointestinal Gastrointestinal: no abdominal pain, no diarrhea, no hematemesis, no hematochezia, no melena, no nausea, no vomiting - Musculoskeletal Musculoskeletal ROS IM: no numbness, no tingling - Integumentary Integumentary IM: no rash, no unusual bruising - Neurological Neurological ROS: no confusion, no convulsions, no focal weakness, no numbness, no tingling, no tremor(s) - Hematologic/Lymphatic Hematologic/Lymphatic: no easy bruising - Constitutional Vitals: Temp Pulse Resp BP Pulse Ox 94.6 F L 97 26 122/102 100 07/14/17 11:34 07/14/17 15:42 07/14/17 15:42 07/14/17 15:42 07/14/17 15:42 General appearance: Present: A&O X 3, answers questions appropriately - Head Head exam: Present: atraumatic, normocephalic - Eye Eye exam: Present: PERRL, conjuntiva pink, sclera anicteric Pupils: Present: PERRL - Neck Neck exam general surgery: Present: supple, trachea midline. Absent: lymphadenopathy - Respiratory Respiratory exam: Present: decreased breath sounds, CTAB. Absent: accessory muscle use, rales, rhonchi, wheezes - Cardiovascular Cardiovascular exam: Present: RRR, +S1, +S2. Absent: diastolic murmur, gallop, rubs, systolic murmur - GI/Abdominal GI/Abdominal exam: Present: distended, normal bowel sounds, soft, no peritoneal signs. Absent: tenderness - Extremities Exam Extremities exam: Present: pedal edema, warm, radial pulses palpable and symmetrical. Absent: calf tenderness, cyanotic - Neurological Exam Neurological exam: Present: CN II-XII intact, oriented X3, no focal deficits. Absent: pronater drift, facial droop, speech deficit - Skin Skin exam: Present: dry, intact Additional comments: Left great toe with ulcer dorsal aspect of greater toe 4 cm x 2 cm Internal Med - H&P Results - Labs CBC & Chem 7: 07/14/17 11:43 07/14/17 11:43 - EKG Data Prior EKG available for review: no EKG comments: 07/14/17 17:11 Sinus tachycardia with right bundle branch block there was some ST depression in septal leads however appears this is present in previous EKG 07/14/17 18:07 I did review EKG with Dr Gunn - Diagnostic Studies Other Images Additional comments: Chest X-Ray 07/14/17 11:32 IMPRESSION: Congestive heart failure D/ / Ken Diaz MD / Ken Diaz MD Interpreting Provider: Ken Diaz MD Chest CTA 07/14/17 12:38 IMPRESSION: No evidence of pulmonary embolism. Bilateral airspace disease, septal thickening and pleural effusions are favored to represent pulmonary edema. Superimposed infectious/inflammatory changes remain a possibility as well. D/ / Jesus Alberto Aguilar MD / Jesus Alberto Aguilar MD Interpreting Provider: Jesus Alberto Aguilar MD
[2017-07-14] MEDS: *HR* Rivaroxaban 10 MG TABLET PO SCH (17:01)
[2017-07-14] MEDS: Insulin LISPRO 300 UNITS/3 ML VIAL SQ SCH ×2 (17:44→21:09)
[2017-07-14] MEDS: Isosorbide MONOnitrate (24 HR) 60 MG TAB.ER.24H PO SCH (18:13)
[2017-07-14] MEDS ORDERED: Insulin DETEMIR 100 UNIT/ML X5UNITS SQ SCH (21:00)
[2017-07-14] MEDS: Furosemide 40 MG/4 ML VIAL IVP SCH (21:03)
[2017-07-14] MEDS: Famotidine 20 MG TABLET PO SCH (21:06)
[2017-07-14] MEDS: Insulin DETEMIR 100 UNIT/ML X5UNITS SQ SCH (22:27)
[2017-07-15 05:30] LABS: Basophils % 0.3 %; Eosinophils % 0.3 %; Hematocrit 28.6 % (37.5-50.1); Hemoglobin 9.1 g/dL (12.9-16.9); Immature Granulocytes % 0.2 % (0-4); Lymphocytes # 1.7 K/mcL (0.6-4.6); Mean Corpuscular HGB Conc 31.8 g/dL (31.6-35.5); Mean Corpuscular Hemoglobin 31.8 pg (28.0-33.3); Mean Platelet Volume 9.3 fL (9.4-12.4); Monocytes # 0.7 K/mcL (0.0-1.3); Monocytes % 12.5 %; Neutrophils # 3.4 K/mcL (1.6-8.9); Platelet Count 175 K/mcL (140-400); Red Blood Count 2.86 M/mcL (4.19-5.50); Red Cell Distribution Width 15.9 % (11.5-14.5); Segmented Neutrophils % 57.7 %
[2017-07-15 05:43] LABS: BUN/Creatinine Ratio 24 (6-26); Blood Urea Nitrogen 18 mg/dL (8-26); Calcium 8.4 mg/dL (8.6-10.8); Carbon Dioxide 30 mEq/L (19-29); Chloride 102 mEq/L (98-109); Glucose 66 mg/dL (70-99); Magnesium 1.9 mg/dL (1.6-2.6); Osmolality,Calculated 292 (280-300); Sodium 141 mEq/L (136-145); eGFR For African Americans > 60 (> 60); eGFR For Non-African Americans > 60 (> 60)
[2017-07-15] MEDS: Insulin LISPRO 300 UNITS/3 ML VIAL SQ SCH ×4 (07:47→21:29)
[2017-07-15] MEDS: Cholecalciferol (D-3) 1,000 UNIT TABLET PO SCH (08:04)
[2017-07-15] MEDS: Isosorbide MONOnitrate (24 HR) 60 MG TAB.ER.24H PO SCH (08:04)
[2017-07-15] MEDS: Folic Acid 1 MG TABLET PO SCH (08:04)
[2017-07-15] MEDS: Furosemide 40 MG/4 ML VIAL IVP SCH ×2 (08:05→21:31)
[2017-07-15] MEDS: Divalproex (24 HR) 500 MG TABLET PO SCH (08:05)
[2017-07-15] MEDS ORDERED: Isosorbide MONOnitrate (24 HR) 60 MG TAB.ER.24H PO SCH (09:00)
--- NOTE | 2017-07-15 12:45 | Internal Med Progress Note ---
<Jose MiguelKen - Last Filed: 07/15/17 12:42> Date of Encounter: 07/15/17 Time of Encounter: 12:42 - Assessment and plan (1) Acute and chronic respiratory failure Current Visit: Yes Status: Acute Assessment and plan: Secondary to acute CHF exacerbation. Improved with diuresis and BiPAP. Continue supplemental oxygen as needed to keep oxygen saturation around 92%. BiPAP as needed and CPAP at night. Qualifiers: Respiratory failure complication: hypoxia Qualified Code(s): J96.21 - Acute and chronic respiratory failure with hypoxia (2) Acute exacerbation of CHF (congestive heart failure) Current Visit: Yes Status: Acute Assessment and plan: Recent stress test showed an EF of 40%. Patient presented with shortness of breath, orthopnea, lower extremity swelling. Likely related to medication noncompliance as the patient states that he does not take diuretic at home. Patient placed on IV Lasix, was on 60 mg twice a day, will decrease to 40 mg twice a day. Elliott in place for strict is and the patient has good urine output. Daily weights, fluid restriction, low-salt diet. BiPAP as needed. Continue beta carmelita, ENOCH inhibitor. Qualifiers: Congestive heart failure type: systolic Qualified Code(s): I50.23 - Acute on chronic systolic (congestive) heart failure (3) Sleep apnea in adult Current Visit: No Status: Chronic Assessment and plan: CPAP at night. Patient reports compliance at home. (4) Elevated troponin Current Visit: Yes Status: Acute Assessment and plan: Likely secondary to demand ischemia in the setting of acute CHF. Patient recently had a stress test that showed a large fixed defect as well as a mild reversible defect. The case was discussed with cardiology and admission who felt that lack of chest pain and EKG changes make myocardial ischemia unlikely. We will continue treatment for acute CHF exacerbation as discussed above and if the patient develops chest pain or telemetry changes will have a low threshold to consult cardiology. - Subjective Interval history: Patient seen and examined at bedside. Patient states that he feels better today. He feels like his shortness of breath and cough are improved. He denies chest pain now and at any point prior to arrival. He reports the swelling in his lower extremities are better. He states he does feel sleepy otherwise he has no complaints. - Constitutional Vitals: Temp Pulse Resp BP Pulse Ox 98.1 F 72 16 112/54 99 12/09/17 12:11 07/15/17 12:11 07/15/17 12:11 07/15/17 12:11 07/15/17 12:11 General appearance: Present: A&O X 3, answers questions appropriately - Respiratory Respiratory exam: Present: rales (Basilar), respiratory distress (Mild conversational dyspnea). Absent: rhonchi, wheezes, tachypnea - Cardiovascular Cardiovascular exam: Present: RRR. Absent: gallop, rubs, systolic murmur - GI/Abdominal GI/Abdominal exam: Present: normal bowel sounds, soft. Absent: distended, tenderness - Extremities Exam Extremities exam: Present: pedal edema (2+ lower extremities bilaterally), warm. Absent: tenderness - Neurological Exam Neurological exam: Present: alert, CN II-XII intact, oriented X3, no focal deficits Internal Medicine: Result - Labs CBC & Chem 7: 07/15/17 05:22 07/15/17 05:22 Labs: Short CBC 07/15/17 Range/Units 05:22 WBC 5.9 (4.3-11.1) K/mcL Hgb 9.1 L (12.9-16.9) g/dL Hct 28.6 L (37.5-50.1) % Plt Count 175 (140-400) K/mcL Neutrophils # 3.4 (1.6-8.9) K/mcL BMP 07/15/17 05:22 Sodium 141 Potassium 4.0 Chloride 102 Carbon Dioxide 30 H BUN 18 Creatinine 0.74 Glucose 66 L Calcium 8.4 L Cardiac Enzymes 07/14/17 07/14/17 Range/Units 16:40 23:02 Troponin I 0.53 H* 0.67 H* (0-0.03) ng/mL Consult Discharge Plan - Plan Referrals: Estuardo Hunter DO [Primary Care Provider] - <Maverick Celestin - Last Filed: 07/15/17 16:25> Date of Encounter: 07/15/17 - Constitutional Vitals: Temp Pulse Resp BP Pulse Ox 98.3 F 74 16 128/64 99 07/15/17 16:12 07/15/17 16:12 07/15/17 16:12 07/15/17 16:12 07/15/17 16:12 Internal Medicine: Result - Labs CBC & Chem 7: 07/15/17 05:22 07/15/17 05:22 Labs: Short CBC 07/15/17 Range/Units 05:22 WBC 5.9 (4.3-11.1) K/mcL Hgb 9.1 L (12.9-16.9) g/dL Hct 28.6 L (37.5-50.1) % Plt Count 175 (140-400) K/mcL Neutrophils # 3.4 (1.6-8.9) K/mcL BMP 07/15/17 05:22 Sodium 141 Potassium 4.0 Chloride 102 Carbon Dioxide 30 H BUN 18 Creatinine 0.74 Glucose 66 L Calcium 8.4 L Cardiac Enzymes 07/14/17 07/14/17 Range/Units 16:40 23:02 Troponin I 0.53 H* 0.67 H* (0-0.03) ng/mL - Attending Attestation I conducted a face to face diagnostic evaluation of this patient and my medical decision-making was reviewed with the Resident Physician, Dr. Ken Gillespie. I agree with the documented findings, disposition and treatment plan as described except to the extent set forth below: EKG personally reviewed reviewed by myself shows normal sinus rhythm with right bundle branch block unchanged from EKG done yesterday. There are nonspecific ST changes unchanged from yesterday. Physical exam reveals 2+ lower extremity edema. Heart is regular with normal S1 and S2 and a systolic murmur. I will obtain echocardiogram.
[2017-07-15] MEDS: *HR* Rivaroxaban 10 MG TABLET PO SCH (16:37)
[2017-07-15] MEDS: Famotidine 20 MG TABLET PO SCH (21:32)
[2017-07-15] MEDS: Insulin DETEMIR 100 UNIT/ML X5UNITS SQ SCH (22:07)
[2017-07-16 06:21] LABS: Basophils % 0.2 %; Eosinophils # 0.1 K/mcL (0.0-0.6); Eosinophils % 1.4 %; Hematocrit 28.2 % (37.5-50.1); Hemoglobin 8.6 g/dL (12.9-16.9); Immature Granulocytes % 0.4 % (0-4); Lymphocytes % 41.5 %; Mean Corpuscular HGB Conc 30.5 g/dL (31.6-35.5); Mean Corpuscular Hemoglobin 30.6 pg (28.0-33.3); Mean Corpuscular Volume 100.4 fL (83.0-100.0); Mean Platelet Volume 9.4 fL (9.4-12.4); Monocytes # 0.6 K/mcL (0.0-1.3); Monocytes % 12.2 %; Neutrophils # 2.2 K/mcL (1.6-8.9); Platelet Count 171 K/mcL (140-400); Red Blood Count 2.81 M/mcL (4.19-5.50); Red Cell Distribution Width 15.9 % (11.5-14.5); Segmented Neutrophils % 44.3 %
[2017-07-16 06:24] LABS: BUN/Creatinine Ratio 28 (6-26); Blood Urea Nitrogen 18 mg/dL (8-26); Calcium 8.1 mg/dL (8.6-10.8); Carbon Dioxide 29 mEq/L (19-29); Chloride 103 mEq/L (98-109); Glucose 111 mg/dL (70-99); Magnesium 1.8 mg/dL (1.6-2.6); Osmolality,Calculated 295 (280-300); Potassium 3.8 mEq/L (3.5-4.5); Sodium 141 mEq/L (136-145); eGFR For African Americans > 60 (> 60); eGFR For Non-African Americans > 60 (> 60)
--- NOTE | 2017-07-16 08:56 | Internal Med Progress Note ---
<EsterKen major - Last Filed: 07/16/17 08:52> Date of Encounter: 07/16/17 Time of Encounter: 08:52 - Assessment and plan (1) Acute and chronic respiratory failure Current Visit: Yes Status: Acute Assessment and plan: Secondary to acute CHF exacerbation. Improved with diuresis and BiPAP. Continue supplemental oxygen as needed to keep oxygen saturation around 92%. BiPAP as needed and CPAP at night. Qualifiers: Respiratory failure complication: hypoxia Qualified Code(s): J96.21 - Acute and chronic respiratory failure with hypoxia (2) Acute exacerbation of CHF (congestive heart failure) Current Visit: Yes Status: Acute Assessment and plan: Recent stress test showed an EF of 40%. Patient presented with shortness of breath, orthopnea, lower extremity swelling. Likely related to medication noncompliance as the patient states that he does not take diuretic at home. Patient placed on IV Lasix, was on 60 mg twice a day, will decrease to 40 mg twice a day, likely transition to PO tomorrow. Condom cath in place for strict Is and Os and the patient has good urine output. Daily weights, fluid restriction, low-salt diet. BiPAP as needed. Continue beta carmelita, ENOCH inhibitor. Qualifiers: Congestive heart failure type: systolic Qualified Code(s): I50.23 - Acute on chronic systolic (congestive) heart failure (3) Sleep apnea in adult Current Visit: No Status: Chronic Assessment and plan: CPAP at night. Patient reports compliance at home. (4) Elevated troponin Current Visit: Yes Status: Acute Assessment and plan: Chest pain-free. Likely secondary to demand ischemia in the setting of acute CHF. Patient recently had a stress test that showed a large fixed defect as well as a mild reversible defect. The case was discussed with cardiology and admission who felt that lack of chest pain and EKG changes make myocardial ischemia unlikely. We will continue treatment for acute CHF exacerbation as discussed above and if the patient develops chest pain or telemetry changes will have a low threshold to consult cardiology. - Subjective Interval history: Patient seen and examined at bedside. Patient states that he feels better today. He feels like his shortness of breath has completely resolved. Feels like his lower extremity swelling is better. He denies fever, chills, cough, chest pain. - Constitutional Vitals: Temp Pulse Resp BP Pulse Ox 98 F 68 18 112/67 100 07/16/17 04:04 07/16/17 04:04 07/16/17 08:06 07/16/17 04:04 07/16/17 08:06 General appearance: Present: A&O X 3, no acute distress, answers questions appropriately - Respiratory Respiratory exam: Present: CTAB. Absent: rales, rhonchi, wheezes - Cardiovascular Cardiovascular exam: Present: RRR. Absent: gallop, rubs, systolic murmur - GI/Abdominal GI/Abdominal exam: Present: normal bowel sounds. Absent: distended, soft, tenderness - Extremities Exam Extremities exam: Present: pedal edema (Trace, improved from yesterday), warm. Absent: tenderness - Neurological Exam Neurological exam: Present: alert, CN II-XII intact, oriented X3, no focal deficits Internal Medicine: Result - Labs CBC & Chem 7: 07/16/17 05:02 07/16/17 05:02 Labs: Short CBC 07/16/17 Range/Units 05:02 WBC 4.9 (4.3-11.1) K/mcL Hgb 8.6 L (12.9-16.9) g/dL Hct 28.2 L (37.5-50.1) % Plt Count 171 (140-400) K/mcL Neutrophils # 2.2 (1.6-8.9) K/mcL BMP 07/16/17 05:02 Sodium 141 Potassium 3.8 Chloride 103 Carbon Dioxide 29 BUN 18 Creatinine 0.65 L Glucose 111 H Calcium 8.1 L Consult Discharge Plan - Plan Referrals: Estuardo Hunter DO [Primary Care Provider] - <Maverick Celestin - Last Filed: 07/16/17 15:00> Date of Encounter: 07/16/17 - Constitutional Vitals: Temp Pulse Resp BP Pulse Ox 97.7 F 70 18 108/63 99 07/16/17 11:45 07/16/17 11:45 07/16/17 11:45 07/16/17 11:45 07/16/17 11:45 Internal Medicine: Result - Labs CBC & Chem 7: 07/16/17 05:02 07/16/17 05:02 Labs: Short CBC 07/16/17 Range/Units 05:02 WBC 4.9 (4.3-11.1) K/mcL Hgb 8.6 L (12.9-16.9) g/dL Hct 28.2 L (37.5-50.1) % Plt Count 171 (140-400) K/mcL Neutrophils # 2.2 (1.6-8.9) K/mcL BMP 07/16/17 05:02 Sodium 141 Potassium 3.8 Chloride 103 Carbon Dioxide 29 BUN 18 Creatinine 0.65 L Glucose 111 H Calcium 8.1 L - Attending Attestation I conducted a face to face diagnostic evaluation of this patient and my medical decision-making was reviewed with the Resident Physician, Dr. Ken Gillespie. I agree with the documented findings, disposition and treatment plan as described except to the extent set forth below: Lower extremity pitting edema is improved from yesterday on exam. Heart is regular S1-S2. Plan: Continue diuresis. Patient recently quit smoking 5 days ago. I strongly advised him to continue to refrain from tobacco use.
[2017-07-16] MEDS: Insulin LISPRO 300 UNITS/3 ML VIAL SQ SCH ×4 (10:32→20:44)
[2017-07-16] MEDS: Folic Acid 1 MG TABLET PO SCH (10:32)
[2017-07-16] MEDS: Isosorbide MONOnitrate (24 HR) 60 MG TAB.ER.24H PO SCH (10:33)
[2017-07-16] MEDS: Cholecalciferol (D-3) 1,000 UNIT TABLET PO SCH (10:33)
[2017-07-16] MEDS: Furosemide 40 MG/4 ML VIAL IVP SCH ×2 (10:33→20:46)
[2017-07-16] MEDS: Divalproex (24 HR) 500 MG TABLET PO SCH (10:33)
--- NOTE | 2017-07-16 13:23 | Electrocardiograph Report ---
[facility] Test Date: 2017-07-14 Pat Name: Scot Noyola Department: 104 Room: 2A37 Gender: M Plating Equipment Tender: RICKY : 1955 Requested By: Familia Ghosh Order Number: [id number] Reading MD: Jaylyn Obregon DO Measurements Intervals [place] Rate: 110 P: -12 VT: 161 QRS: -3 QRSD: 154 T: 68 QT: 342 QTc: 407 Interpretive Statements SINUS TACHYCARDIA POSSIBLE LEFT ATRIAL ENLARGEMENT RIGHT BUNDLE BRANCH BLOCK INFERIOR MYOCARDIAL INFARCTION, PROBABLY OLD MARKED ST DEPRESSION, CONSIDER SUBENDOCARDIAL INJURY Electronically Signed On 07-16-2017 13:21:54 EST by Jaylyn Obregon DO
--- NOTE | 2017-07-16 13:25 | Electrocardiograph Report ---
[facility] Test Date: 2017-07-14 Pat Name: Scot Noyola Department: 104 Room: 2A37 Gender: M Painter Sign Maintenance: RICKY : 1955 Requested By: Familia Ghosh Order Number: [id number] Reading MD: Jaylyn Obregon DO Measurements Intervals [place] Rate: 97 P: -2 MS: 176 QRS: 9 QRSD: 162 T: 83 QT: 336 QTc: 390 Interpretive Statements SINUS RHYTHM POSSIBLE LEFT ATRIAL ENLARGEMENT [-0.1mV P WAVE IN V1/V2] RIGHT BUNDLE BRANCH BLOCK [120+ ms QRS DURATION, UPRIGHT V1, 40+ ms S IN I/aVL/V4/V5/V6] INFERIOR MYOCARDIAL INFARCTION [40+ ms Q WAVE AND/OR ST/T ABNORMALITY IN II/aVF], PROBABLY OLD ST DEPRESSION, CONSIDER SUBENDOCARDIAL INJURY [0.1+ mV ST DEPRESSION] Electronically Signed On 07-16-2017 13:24:23 EST by Jaylyn Obregon DO
--- NOTE | 2017-07-16 15:59 | Cardiology Consult Note ---
Date of Encounter: 07/16/17 Time of Encounter: 15:55 Assessment and Plan (1) CAD (coronary artery disease) Current Visit: No Status: Chronic Known coronary artery disease status post CABG in 1994. Patient is a poor historian and therefore will recommend obtaining records and also recommend following up with cardiology in 2-3 months upon discharge. I have attempted to informed patient of his coronary artery disease and medications involved however it seems that he is fairly confused and unaware of most of his medical conditions and medications. He likely would benefit from a dietary consult as well With no new reversible ischemia and it ejection fraction of 40% no cardiac testing or procedures are recommended at this time. His stress test only showed kal[place]-infarct ischemia likely from his old VT in 1994. His elevated troponins likely were result of decompensated heart failure. Continue above medications and education Qualifiers: Coronary Disease-Associated Artery/Lesion type: [place] artery [place] vs. transplanted heart: [place] heart Associated angina: with stable angina Qualified Code(s): I25.118 - Atherosclerotic heart disease of [place] coronary artery with other forms of angina pectoris (2) CHF (congestive heart failure) Current Visit: Yes Status: Acute Known CHF however does not follow with cardiology. LVEF of 40% on stress test June 2017. Possible volume overload and lack of taking Lasix after his lower extremity PTCA. Patient denies any previous shortness of breath or chest pain. Currently euvolemic on exam asymptomatic denying any orthopnea or PND. Resume medications as previously prescribed and follow up with cardiology as an outpatient Qualifiers: Congestive heart failure type: unspecified congestive heart failure type Congestive heart failure chronicity: acute on chronic Qualified Code(s): I50.9 - Heart failure, unspecified Discussion w patient/family: The assessment and plan as outlined above was discussed with the patient and/or family members who expressed understanding and agreement. All questions were answered. Thank you for involving us in the care of your patient. Please call with any questions. History of Present Illness Consult date: 07/16/17 Consult reason: CHF Chief complaint: SOB History of present illness: Mr. Noyola is a 62 year old male with history of coronary artery disease status post CABG in 1994. Patient has multiple comorbidities and cardiac risk factors including peripheral artery disease status post lower extremity stenting a week ago. Apparently while moving back from rehabilitation to his apartment the patient had missed multiple medications. After extensive discussion with the patient apparently he is not fully knowledgeable about his medications initially denying he takes Lasix at all. He presented with increasing shortness of breath found to have a stitch or edema with hypervolemia on chest x-ray. He apparently had missed his Lasix dose for at least one day possibly even more. He currently after restarting on Lasix is euvolemic on exam denies any shortness of breath, orthopnea, PND, presyncope or syncope. His last stress test showed kal[place]-infarct ischemia with no new territory involved after his myocardial infarction 1994. His ejection fraction is 40% and has not had any chest pain or shortness of breath prior missing his medications for a few days. He initially was follow with Dr. Rangel but currently only follows with his primary care physician. Past Med Surg Social Fam HX - Past Medical History Medical history: CHF, coronary artery disease, diabetes, hyperlipidemia, hypertension, myocardial infarction, TIA, valvular heart disease Psychiatric history: anxiety, depression - Past Surgical History Surgical History: arthroscopy, coronary bypass (CABG) - Social History Smoking Status: Current every day smoker Smokeless Tobacco Status: No Alcohol use: none Drug use: none - Family History Mother Living Status: Still Living Hx Family Cardiac Disorders: Yes (heart disease ) Father Living Status: Still Living Hx Family Cardiac Disorders: Yes (cardiac disease ) Medications and Allergies Carvedilol [Coreg] 25 mg PO BID 06/16/17 [History] Clopidogrel [Plavix] 75 mg PO DAILY 06/16/17 [History] Donepezil [Aricept] 10 mg PO DAILY 06/16/17 [History] Folic Acid 1 mg PO DAILY 06/16/17 [History] Furosemide [Lasix] 40 mg PO DAILY 06/16/17 [History] Insulin Glargine,Hum.rec.anlog [Lantus Solostar] 46 unit SQ HS 06/16/17 [History ] Isosorbide MONOnitrate (24 HR) [Imdur] 60 mg PO DAILY 06/16/17 [History] Lisinopril [Zestril] 5 mg PO DAILY 06/16/17 [History] Loratadine [Claritin] 10 mg PO DAILY 06/16/17 [History] Nitroglycerin [Nitrostat] 0.4 mg SL DAILY PRN 06/16/17 [History] Ranitidine HCl [Zantac] 300 mg PO HS 06/16/17 [History] Sertraline [Zoloft] 100 mg PO DAILY 06/16/17 [History] SitaGLIPtin [Januvia] 100 mg PO DAILY 06/16/17 [History] Armodafinil [Nuvigil] 250 mg PO DAILY 06/27/17 [History] Cholecalciferol (D-3) [Vitamin D] 1,000 unit PO DAILY 06/27/17 [History] Divalproex (24 HR) [Depakote ER (24 HR)] 2,500 mg PO DAILY 06/27/17 [History] Memantine HCl 10 mg PO BID 06/27/17 [History] Simvastatin [Zocor] 80 mg PO HS 06/27/17 [History] HYDROcodone/Acet 5/325 mg [[place] 5-325 mg] 1 tab PO Q6HR PRN #14 tablet [Rx] Rivaroxaban [Xarelto] 20 mg PO QPM #30 tablet 06/28/17 [Rx] Collagenase Oint [Santyl] 1 appl TP DAILY 07/14/17 [History] 3 Allergy/AdvReac Type Severity Reaction Status Date / Time No Known Allergies Allergy Verified 06/27/17 08:13 All Systems Review: A 10-system review of systems was performed and is negative for pertinent findings except as documented above in the HPI. Physical Examination General: Conversant, No Apparent Distress HEENT: Atraumatic, Normocephaly, Mucus Membranes Moist Neck: No JVD, Normal carotid pulses Cardiac: Reg Rate and Rhythm, Normal S1 and S2, No Murmur Lungs: Normal Breath Sounds, No Wheeze, Rales, Rhonchi Neuro: Alert and responsive, No focal deficits noted Abdomen: Soft, Non-Tender Skin: No rashes noted on visualized skin Musculoskeletal: No Chest Wall Tenderness Extremities: No Clubbing, No Cyanosis, No Edema, Normal Pulses Results 07/16/17 05:02 07/16/17 05:02 Lab Results 07/16/17 07/16/17 05:02 05:02 WBC 4.9 Hgb 8.6 L Hct 28.2 L Plt Count 171 Sodium 141 Potassium 3.8 Chloride 103 Carbon Dioxide 29 BUN 18 Creatinine 0.65 L Glucose 111 H Calcium 8.1 L Magnesium 1.8 Consult Discharge Plan - Plan Referrals: Stiltsuresh,Estuardo D, [Primary Care Provider] -
[2017-07-16] MEDS: *HR* Rivaroxaban 10 MG TABLET PO SCH (17:12)
[2017-07-16] MEDS: Famotidine 20 MG TABLET PO SCH (20:46)
[2017-07-16] MEDS: Insulin DETEMIR 100 UNIT/ML X5UNITS SQ SCH (20:46)
[2017-07-17 04:43] LABS: Basophils % 0.4 %; Eosinophils # 0.1 K/mcL (0.0-0.6); Eosinophils % 1.6 %; Hematocrit 30.2 % (37.5-50.1); Hemoglobin 9.5 g/dL (12.9-16.9); Immature Granulocytes % 0.2 % (0-4); Lymphocytes # 2.4 K/mcL (0.6-4.6); Mean Corpuscular HGB Conc 31.5 g/dL (31.6-35.5); Mean Corpuscular Hemoglobin 31.1 pg (28.0-33.3); Mean Platelet Volume 9.6 fL (9.4-12.4); Monocytes # 0.6 K/mcL (0.0-1.3); Monocytes % 10.4 %; Neutrophils # 2.4 K/mcL (1.6-8.9); Platelet Count 161 K/mcL (140-400); Red Blood Count 3.05 M/mcL (4.19-5.50); Red Cell Distribution Width 15.8 % (11.5-14.5); Segmented Neutrophils % 44.4 %
[2017-07-17 04:54] LABS: BUN/Creatinine Ratio 29 (6-26); Blood Urea Nitrogen 20 mg/dL (8-26); Calcium 8.7 mg/dL (8.6-10.8); Carbon Dioxide 32 mEq/L (19-29); Chloride 101 mEq/L (98-109); Glucose 139 mg/dL (70-99); Magnesium 1.9 mg/dL (1.6-2.6); Osmolality,Calculated 295 (280-300); Potassium 3.8 mEq/L (3.5-4.5); Sodium 140 mEq/L (136-145); eGFR For African Americans > 60 (> 60); eGFR For Non-African Americans > 60 (> 60)
[2017-07-17] MEDS: Insulin LISPRO 300 UNITS/3 ML VIAL SQ SCH ×3 (07:53→17:41)
[2017-07-17] MEDS: Cholecalciferol (D-3) 1,000 UNIT TABLET PO SCH (10:05)
[2017-07-17] MEDS: Furosemide 40 MG/4 ML VIAL IVP SCH ×2 (10:05→20:54)
[2017-07-17] MEDS: Folic Acid 1 MG TABLET PO SCH (10:05)
[2017-07-17] MEDS: Divalproex (24 HR) 500 MG TABLET PO SCH (10:05)
[2017-07-17] MEDS: Isosorbide MONOnitrate (24 HR) 60 MG TAB.ER.24H PO SCH (10:05)
[2017-07-17] MEDS: ARMODAFINIL 250 MG PO SCH (15:49)
--- NOTE | 2017-07-17 16:00 | Internal Med Progress Note ---
<Ken Gillespie Rolando - Last Filed: 07/17/17 15:58> Date of Encounter: 07/17/17 Time of Encounter: 15:58 - Assessment and plan (1) Acute and chronic respiratory failure Current Visit: Yes Status: Acute Assessment and plan: Secondary to acute CHF exacerbation. Continues to improve with diuresis and BiPAP. Continue supplemental oxygen as needed to keep oxygen saturation around 92%. CPAP at night. Qualifiers: Respiratory failure complication: hypoxia Qualified Code(s): J96.21 - Acute and chronic respiratory failure with hypoxia (2) Acute exacerbation of CHF (congestive heart failure) Current Visit: Yes Status: Acute Assessment and plan: Recent stress test showed an EF of 40%. Patient presented with shortness of breath, orthopnea, lower extremity swelling. Likely related to medication noncompliance as the patient states that he does not take diuretic at home. Patient placed on IV Lasix, was on 60 mg twice a day, will decrease to 40 mg twice a day, continue IV for now and function has remained stable. Good urine output. Daily weights, fluid restriction, low-salt diet. BiPAP as needed. Continue beta carmelita, ENOCH inhibitor. Qualifiers: Congestive heart failure type: systolic Qualified Code(s): I50.23 - Acute on chronic systolic (congestive) heart failure (3) Sleep apnea in adult Current Visit: No Status: Chronic Assessment and plan: CPAP at night. Patient reports compliance at home. (4) Elevated troponin Current Visit: Yes Status: Acute Assessment and plan: Chest pain-free. Likely secondary to demand ischemia in the setting of acute CHF. Patient recently had a stress test that showed a large fixed defect as well as a mild reversible defect. The case was discussed with cardiology and admission who felt that lack of chest pain and EKG changes make myocardial ischemia unlikely. Patient was seen by cardiology feels this is all related to demand ischemia in the setting of acute CHF exacerbation. No further intervention needed. - Subjective Interval history: Patient seen and examined at bedside. Patient states that he feels better today. He feels like his shortness of breath has resolved. Feels like his lower extremity swelling is better. He still feels somewhat weak. He denies fever, chills, cough, chest pain. - Constitutional Vitals: Temp Pulse Resp BP Pulse Ox 97.3 F L 75 17 126/68 98 07/17/17 11:30 07/17/17 11:30 07/17/17 11:30 07/17/17 11:30 07/17/17 11:30 General appearance: Present: A&O X 3, no acute distress, answers questions appropriately - Respiratory Respiratory exam: Present: decreased breath sounds. Absent: rales, rhonchi, wheezes - Cardiovascular Cardiovascular exam: Present: RRR. Absent: gallop, rubs, systolic murmur - GI/Abdominal GI/Abdominal exam: Present: normal bowel sounds, soft. Absent: distended, tenderness - Extremities Exam Extremities exam: Present: pedal edema, warm (trace, improved). Absent: tenderness - Neurological Exam Neurological exam: Present: alert, CN II-XII intact, oriented X3, no focal deficits Internal Medicine: Result - Labs CBC & Chem 7: 07/17/17 03:51 07/17/17 03:51 Labs: Short CBC 07/17/17 Range/Units 03:51 WBC 5.5 (4.3-11.1) K/mcL Hgb 9.5 L (12.9-16.9) g/dL Hct 30.2 L (37.5-50.1) % Plt Count 161 (140-400) K/mcL Neutrophils # 2.4 (1.6-8.9) K/mcL BMP 07/17/17 03:51 Sodium 140 Potassium 3.8 Chloride 101 Carbon Dioxide 32 H BUN 20 Creatinine 0.69 L Glucose 139 H Calcium 8.7 Consult Discharge Plan - Plan Referrals: Estuardo Hunter DO [Primary Care Provider] - <Maverick Celestin - Last Filed: 07/17/17 20:02> Date of Encounter: 07/17/17 - Constitutional Vitals: Temp Pulse Resp BP Pulse Ox 97.7 F 84 17 102/64 97 07/17/17 19:28 07/17/17 19:28 07/17/17 19:28 07/17/17 19:28 07/17/17 19:28 Internal Medicine: Result - Labs CBC & Chem 7: 07/17/17 03:51 07/17/17 03:51 Labs: Short CBC 07/17/17 Range/Units 03:51 WBC 5.5 (4.3-11.1) K/mcL Hgb 9.5 L (12.9-16.9) g/dL Hct 30.2 L (37.5-50.1) % Plt Count 161 (140-400) K/mcL Neutrophils # 2.4 (1.6-8.9) K/mcL BMP 07/17/17 03:51 Sodium 140 Potassium 3.8 Chloride 101 Carbon Dioxide 32 H BUN 20 Creatinine 0.69 L Glucose 139 H Calcium 8.7 - Attending Attestation I conducted a face to face diagnostic evaluation of this patient and my medical decision-making was reviewed with the Resident Physician, Dr. Ken Gillespie. I agree with the documented findings, disposition and treatment plan as described except to the extent set forth below: Continue diuresis. Strict I's and O's. Daily weights. I advised smoking cessation and provided counseling today.
[2017-07-17] MEDS: *HR* Rivaroxaban 10 MG TABLET PO SCH (17:33)
[2017-07-17] MEDS: Insulin DETEMIR 100 UNIT/ML X5UNITS SQ SCH (20:53)
[2017-07-17] MEDS: Famotidine 20 MG TABLET PO SCH (20:54)
[2017-07-18] MEDS: Insulin LISPRO 300 UNITS/3 ML VIAL SQ SCH ×3 (00:38→11:58)
[2017-07-18 05:08] LABS: Basophils % 0.4 %; Eosinophils # 0.1 K/mcL (0.0-0.6); Eosinophils % 1.1 %; Hemoglobin 10.2 g/dL (12.9-16.9); Immature Granulocytes % 0.2 % (0-4); Lymphocytes # 2.3 K/mcL (0.6-4.6); Lymphocytes % 43.4 %; Mean Corpuscular HGB Conc 31.9 g/dL (31.6-35.5); Mean Corpuscular Hemoglobin 31.5 pg (28.0-33.3); Mean Corpuscular Volume 98.8 fL (83.0-100.0); Mean Platelet Volume 9.7 fL (9.4-12.4); Monocytes # 0.5 K/mcL (0.0-1.3); Neutrophils # 2.4 K/mcL (1.6-8.9); Platelet Count 171 K/mcL (140-400); Red Blood Count 3.24 M/mcL (4.19-5.50); Segmented Neutrophils % 44.9 %
[2017-07-18 05:39] LABS: BUN/Creatinine Ratio 29 (6-26); Blood Urea Nitrogen 22 mg/dL (8-26); Calcium 9.1 mg/dL (8.6-10.8); Carbon Dioxide 29 mEq/L (19-29); Chloride 103 mEq/L (98-109); Glucose 80 mg/dL (70-99); Osmolality,Calculated 294 (280-300); Potassium 3.9 mEq/L (3.5-4.5); Sodium 141 mEq/L (136-145); eGFR For African Americans > 60 (> 60); eGFR For Non-African Americans > 60 (> 60)
[2017-07-18 05:40] LABS: Magnesium 2.4 mg/dL (1.6-2.6)
[2017-07-18] MEDS ORDERED: Furosemide 40 MG TABLET PO SCH (08:15)
[2017-07-18] MEDS: Divalproex (24 HR) 500 MG TABLET PO SCH (08:16)
[2017-07-18] MEDS: Isosorbide MONOnitrate (24 HR) 60 MG TAB.ER.24H PO SCH (08:17)
[2017-07-18] MEDS: Cholecalciferol (D-3) 1,000 UNIT TABLET PO SCH (08:17)
[2017-07-18] MEDS: Folic Acid 1 MG TABLET PO SCH (08:19)
[2017-07-18] MEDS: ARMODAFINIL 250 MG PO SCH (08:22)
--- NOTE | 2017-07-18 08:25 | Discharge Summary ---
<eKn Gillespie - Last Filed: 07/18/17 10:24> Date of Encounter: 07/18/17 Time of Encounter: 08:21 - Discharge Diagnosis (1) Acute and chronic respiratory failure Priority: Primary Status: Resolved Qualifiers: Respiratory failure complication: hypoxia Qualified Code(s): J96.21 - Acute and chronic respiratory failure with hypoxia (2) Acute exacerbation of CHF (congestive heart failure) Priority: Primary Status: Acute Qualifiers: Congestive heart failure type: systolic Qualified Code(s): I50.23 - Acute on chronic systolic (congestive) heart failure (3) Sleep apnea in adult Priority: Secondary Status: Chronic (4) Elevated troponin Priority: Secondary Status: Acute (5) PAD (peripheral artery disease) Priority: Secondary Status: Chronic (6) CAD (coronary artery disease) Priority: Secondary Status: Chronic Qualifiers: Coronary Disease-Associated Artery/Lesion type: [place] artery [place] vs. transplanted heart: [place] heart Associated angina: with stable angina Qualified Code(s): I25.118 - Atherosclerotic heart disease of [place] coronary artery with other forms of angina pectoris (7) Diabetes Priority: Secondary Status: Chronic Qualifiers: Diabetes mellitus type: type 1 Diabetes mellitus complication status: with circulatory complication Diabetes mellitus complication detail: with peripheral angiopathy without gangrene Qualified Code(s): E10.51 - Type 1 diabetes mellitus with diabetic peripheral angiopathy without gangrene - Discharge Medications Prescriptions: HYDROcodone/Acet 5/325 mg [[place] 5-325 mg] 1 tab PO Q6HR PRN #14 tablet PRN Reason: Moderate Pain Aspirin Enteric Coated [Aspirin EC] 81 mg PO DAILY #30 tablet.dr Home Medications: Carvedilol [Coreg] 25 mg PO BID 06/16/17 [History] Clopidogrel [Plavix] 75 mg PO DAILY 06/16/17 [History] Donepezil [Aricept] 10 mg PO DAILY 06/16/17 [History] Folic Acid 1 mg PO DAILY 06/16/17 [History] Insulin Glargine,Hum.rec.anlog [Lantus Solostar] 46 unit SQ HS 06/16/17 [History ] Isosorbide MONOnitrate (24 HR) [Imdur] 60 mg PO DAILY 06/16/17 [History] Lisinopril [Zestril] 5 mg PO DAILY 06/16/17 [History] Loratadine [Claritin] 10 mg PO DAILY 06/16/17 [History] Nitroglycerin [Nitrostat] 0.4 mg SL DAILY PRN 06/16/17 [History] Ranitidine HCl [Zantac] 300 mg PO HS 06/16/17 [History] Sertraline [Zoloft] 100 mg PO DAILY 06/16/17 [History] SitaGLIPtin [Januvia] 100 mg PO DAILY 06/16/17 [History] Armodafinil [Nuvigil] 250 mg PO DAILY 06/27/17 [History] Cholecalciferol (D-3) [Vitamin D] 1,000 unit PO DAILY 06/27/17 [History] Divalproex (24 HR) [Depakote ER (24 HR)] 2,500 mg PO DAILY 06/27/17 [History] Memantine HCl 10 mg PO BID 06/27/17 [History] Simvastatin [Zocor] 80 mg PO HS 06/27/17 [History] Collagenase Oint [Santyl] 1 appl TP DAILY 07/14/17 [History] Aspirin Enteric Coated [Aspirin EC] 81 mg PO DAILY #30 tablet. 07/18/17 [Rx] Furosemide [Lasix] 40 mg PO BIDDIURETIC tablet 07/18/17 [Rx] HYDROcodone/Acet 5/325 mg [[place] 5-325 mg] 1 tab PO Q6HR PRN #14 tablet [Rx] Patient Taking Own Medication 1 each PO DAILY each 07/18/17 [Rx] Potassium Chloride 20 meq PO DAILY tab.er.prt 07/18/17 [Rx] Allergies/Adverse Reactions: 3 Allergy/AdvReac Type Severity Reaction Status Date / Time No Known Allergies Allergy Verified 06/27/17 08:13 Procedures/tests Complete & Pending: Procedures Performed prior 72 hours Category Date Time Status ECG 12 lead ECG [ECG] Routine Y 07/15/17 15:02 Completed Date of admission: 07/14/17 15:04 Primary care physician: Estuardo Hunter DO Consults: 07/14/17 16:09 Consult to Occupational Therapy [CONS] Routine Comment: Evaluate, develop and implement POC Reason for Consult: debility Consult to Physical Therapy [CONS] Routine Comment: Evaluate, develop and implement POC Reason for Consult: debility 07/14/17 18:12 Consult to Cuff Setter [CONS] Routine Reason for SW Consult: Discharge planning 07/16/17 10:42 Consult to Cardiology [CONS] Routine Comment: Consulting Provider: Cardiology Ruby Reason for Consult: Elevated Trop/Acute HF exacerbation Call Completed: Yes Discharging clinician: Ken Gillespie Anticipated date of discharge: 07/18/17 - Patient Status Disposition: Transfer SNF Condition: Good - Ambulatory Orders Ambulatory Orders: Basic Metabolic Panel [CHEM] Time Frame: 1 Week, Facility: [facility], Location: Lab - Discharge Instructions Instructions: Heart Failure (DC), Diabetes Mellitus Type 2 in Adults (DC), Chronic Obstructive Pulmonary Disease (DC) Follow Up With: sEtuardo Hunter DO [Primary Care Provider] - (1 week) June Rangel DO [Partnered Physician] - (2-4 weeks) Lance Bernstein MD [Partnered Physician] - (3 months) Forms: ED Satisfaction Letter Additional Instructions: Please resume your home medications. Please follow-up with your PCP and within 1 week. Please follow up with cardiology in 2-4 weeks. Please stop Xarelto. Please take Lasix 40 mg twice a day. Please have your labs checked at the [facility] in one week. Please return for any new or worsening symptoms. - Diet and Activity Activity: increase activity as tolerated Diet: diabetic diet, low fat, low cholesterol, low salt diet, other (1.5L fluid restriction) Interval History: Patient seen and examined at bedside. Patient states that he feels pretty good today. He feels back to baseline. He does feel mildly weak that he attributes to his extended hospital stay. He denies fever, chills, cough, congestion, chest pain, dyspnea Hospital course: Mr. Noyola is a 62 year old male with history of coronary disease, systolic heart failure, type 2 diabetes who presented with shortness of breath and lower extremity swelling. Patient was admitted for systolic heart failure exacerbation likely related to noncompliance patient states Lasix however it was on his med list. He just recently had a nuclear stress test that showed gated EF of 40%. He was aggressively diuresed with IV Lasix and he diuresed well and his symptoms resolved. Patient also had elevated troponins without chest pain or EKG changes. He was seen by cardiology who felt this was all related to his acute exacerbation of heart failure and did not recommend any further workup. He was evaluated by physical therapy who recommended rehabilitation at [facility]. Patient will be discharged to [facility] in stable condition. Time spent discussing smoking cessation with patient: 3 to 10 minutes - Time Spent with Patient Total time spent providing and/or coordinating discharge services: 40 minutes - Constitutional Vitals: Temp Pulse Resp BP Pulse Ox 98.0 F 77 17 127/74 98 07/18/17 07:41 07/18/17 07:41 07/18/17 07:41 07/18/17 07:41 07/18/17 07:41 General appearance: Present: A&O X 3, no acute distress, answers questions appropriately - Respiratory Respiratory exam: Present: CTAB. Absent: rales, rhonchi, wheezes - Cardiovascular Cardiovascular exam: Present: RRR. Absent: gallop, rubs, systolic murmur - GI/Abdominal GI/Abdominal exam: Present: normal bowel sounds, soft. Absent: distended, tenderness - Extremities Exam Extremities exam: Present: warm. Absent: pedal edema, tenderness - Neurological Exam Neurological exam: Present: alert, CN II-XII intact, oriented X3, no focal deficits <Agus Webber - Last Filed: 07/18/17 14:29> Date of Encounter: 07/18/17 Procedures/tests Complete & Pending: Procedures Performed prior 72 hours Category Date Time Status ECG 12 lead ECG [ECG] Routine Y 07/15/17 15:02 Completed Date of admission: 07/14/17 15:04 Primary care physician: Estuardo Hunter DO Consults: 07/14/17 16:09 Consult to Occupational Therapy [CONS] Routine Comment: Evaluate, develop and implement POC Reason for Consult: debility Consult to Physical Therapy [CONS] Routine Comment: Evaluate, develop and implement POC Reason for Consult: debility 07/14/17 18:12 Consult to Cuff Setter [CONS] Routine Reason for SW Consult: Discharge planning 07/16/17 10:42 Consult to Cardiology [CONS] Routine Comment: Consulting Provider: Cardiology Ruby Reason for Consult: Elevated Trop/Acute HF exacerbation Call Completed: Yes Hospital course: Mr. Noyola is a 62 year old male - Time Spent with Patient Total time spent providing and/or coordinating discharge services: - Constitutional Vitals: Temp Pulse Resp BP Pulse Ox 97.4 F L 67 16 103/61 99 07/18/17 11:12 07/18/17 11:12 07/18/17 11:12 07/18/17 11:12 07/18/17 11:12 - Attending Attestation Acute chronic hypoxic respiratory failure secondary to acute systolic CHF exacerbation Improved with Lasix and with no antibiotics although the CT scan showed possible air space disease bilaterally, but mostly acute pulmonary edema with pleural effusion Continue Lasix at home, decrease fluid intake Time spent on this discharge: 40 minutes I examined this patient and my medical decision-making was reviewed with the Resident Physician. I agree with the documented findings, disposition and treatment plan as described except to the extent set forth below.
--- NOTE | 2017-07-18 08:36 | Physician Discharge Referral ---
ExtendedCare Referral Info Transfer To: [facility] Provider in Charge after Transfer: PCP Institutional Level of Care: Intermediate - Diagnosis (1) Acute and chronic respiratory failure Priority: Primary Status: Resolved (2) Acute exacerbation of CHF (congestive heart failure) Priority: Primary Status: Acute (3) Sleep apnea in adult Priority: Secondary Status: Chronic (4) Elevated troponin Priority: Secondary Status: Acute (5) PAD (peripheral artery disease) Status: Chronic (6) CAD (coronary artery disease) Priority: Secondary Status: Chronic (7) Diabetes Priority: Secondary Status: Chronic Prognosis: Fair Aware of Diagnosis: Patient Aware of Prognosis: Patient - Transfer Medications Prescriptions: HYDROcodone/Acet 5/325 mg [[place] 5-325 mg] 1 tab PO Q6HR PRN #14 tablet PRN Reason: Moderate Pain Aspirin Enteric Coated [Aspirin EC] 81 mg PO DAILY #30 tablet.[address] Davalos Medications: Carvedilol [Coreg] 25 mg PO BID 06/16/17 [History] Clopidogrel [Plavix] 75 mg PO DAILY 06/16/17 [History] Donepezil [Aricept] 10 mg PO DAILY 06/16/17 [History] Folic Acid 1 mg PO DAILY 06/16/17 [History] Insulin Glargine,Hum.rec.anlog [Lantus Solostar] 46 unit SQ HS 06/16/17 [History ] Isosorbide MONOnitrate (24 HR) [Imdur] 60 mg PO DAILY 06/16/17 [History] Lisinopril [Zestril] 5 mg PO DAILY 06/16/17 [History] Loratadine [Claritin] 10 mg PO DAILY 06/16/17 [History] Nitroglycerin [Nitrostat] 0.4 mg SL DAILY PRN 06/16/17 [History] Ranitidine HCl [Zantac] 300 mg PO HS 06/16/17 [History] Sertraline [Zoloft] 100 mg PO DAILY 06/16/17 [History] SitaGLIPtin [Januvia] 100 mg PO DAILY 06/16/17 [History] Armodafinil [Nuvigil] 250 mg PO DAILY 06/27/17 [History] Cholecalciferol (D-3) [Vitamin D] 1,000 unit PO DAILY 06/27/17 [History] Divalproex (24 HR) [Depakote ER (24 HR)] 2,500 mg PO DAILY 06/27/17 [History] Memantine HCl 10 mg PO BID 06/27/17 [History] Simvastatin [Zocor] 80 mg PO HS 06/27/17 [History] Collagenase Oint [Santyl] 1 appl TP DAILY 07/14/17 [History] Aspirin Enteric Coated [Aspirin EC] 81 mg PO DAILY #30 tablet.dr 07/18/17 [Rx] Furosemide [Lasix] 40 mg PO BIDDIURETIC tablet 07/18/17 [Rx] HYDROcodone/Acet 5/325 mg [[place] 5-325 mg] 1 tab PO Q6HR PRN #14 tablet [Rx] Patient Taking Own Medication 1 each PO DAILY each 07/18/17 [Rx] Potassium Chloride 20 meq PO DAILY tab.er.prt 07/18/17 [Rx] Allergies/Adverse Reactions: 3 Allergy/AdvReac Type Severity Reaction Status Date / Time No Known Allergies Allergy Verified 06/27/17 08:13 - Respiratory Orders Smoking Cessation: Smoking cessation has been advised. For more information, call the [place] Tobacco Quit Line at 9-728-AKWM-NOW. - Lab Orders Lab Orders: Other (include drug levels w/frequency) (BMP in 1 week, results to Dr. Hunter) - Ancillary Orders May use pressure relief devices daily prn, May consult with Dentist, Bobbin Drier, [place] PRN - Advance Directives Code Status: Full Code - Mobility Orders Ambulate (with assist) - Rehabiliation Orders Rehab Potential: Good Rehab Orders: Evaluation for Physical Therapy, Evaluation for Occupational Therapy - Treatments Skin tear care topically daily PRN per policy, Fleet enema rectally every other day PRN cleansing purposes - Diet Orders No Added Salt (KELLY), Cardiac (1.5L fluid restriction) CERTIFICATION: I certify that the transfer of the above named patient to an Extended Care Facility is necessary for the continuing treatment of the diagnosis listed. The above information is true and accurate reflection of patient's current condition. Confidential - Redisclosure prohibited without a patient's written consent.
[2017-07-18 11:28] VITALS: BP 103/61
[2017-07-18] MEDS ORDERED: Divalproex (24 HR) 500 MG TABLET PO SCH (21:00)
== END 2017-07-18 13:08 ==
LOC: EMEROO 11:28 → INTOOBSV 15:04 → SUATTDRO 15:04 → 2ANU 15:04
PROVIDERS: ADMIT Hospitalist; ATTEND Internal Medicine

== ENCOUNTER 2019-06-09 01:28 | Inpatient (IN) ==
[2019-06-09] MEDS ORDERED: Furosemide 40 MG/4 ML VIAL IVP ONE (02:40)
[2019-06-09 02:52] LABS: Basophils % 0.6 %; Eosinophils % 0.6 %; Hematocrit 42.1 % (37.5-50.1); Hemoglobin 13.6 g/dL (12.9-16.9); Immature Granulocytes % 1.2 % (0-4); Lymphocytes # 2.6 K/mcL (0.6-4.6); Lymphocytes % 40.4 %; Mean Corpuscular HGB Conc 32.3 g/dL (31.6-35.5); Mean Corpuscular Hemoglobin 31.3 pg (28.0-33.3); Mean Platelet Volume 10.6 fL (9.4-12.4); Monocytes # 0.5 K/mcL (0.0-1.3); Monocytes % 7.1 %; Neutrophils # 3.2 K/mcL (1.6-8.9); Nucleated Red Blood Cells 0.3 /100 WBC (0); Platelet Count 195 K/mcL (140-400); Red Blood Count 4.34 M/mcL (4.19-5.50); Red Cell Distribution Width 15.2 % (11.5-14.5); Segmented Neutrophils % 50.1 %; White Blood Count 6.4 K/mcL (4.3-11.1)
[2019-06-09 03:21] LABS: BUN/Creatinine Ratio 23 (6-26); Blood Urea Nitrogen 24 mg/dL (8-23); Calcium 8.5 mg/dL (8.6-10.3); Carbon Dioxide 22 mEq/L (23-29); Chloride 101 mEq/L (98-107); Glucose 454 mg/dL (70-105); Osmolality,Calculated 302 (280-300); Potassium 5.1 mEq/L (3.5-5.1); Sodium 134 mEq/L (136-145); Troponin I 0.04 ng/mL (< 0.04); eGFR For African Americans > 60 (> 60); eGFR For Non-African Americans > 60 (> 60)
[2019-06-09] MEDS ORDERED: Naloxone 0.4 MG/ML INJ IVP PRN (05:23)
[2019-06-09] MEDS ORDERED: *HR* Dextrose 50 % in Water (Syg) 50 ML SYRINGE IVP PRN (05:29)
[2019-06-09] MEDS ORDERED: D5% in Water 1,000 ML IVC PRN (05:29)
[2019-06-09] MEDS ORDERED: Dextrose Gel 15 GM/37.5 ML TUBE PO PRN ×2 (05:29)
[2019-06-09] MEDS ORDERED: Nitroglycerin 0.4 MG TAB.SUBL SL PRN (05:30)
[2019-06-09] MEDS ORDERED: Albuterol 2.5 MG/3 ML NEBULIZER IH PRN (05:33)
[2019-06-09] MEDS ORDERED: Insulin LISPRO 300 UNITS/3 ML VIAL SQ SCH (06:00)
[2019-06-09] MEDS: Isosorbide MONOnitrate (24 HR) 60 MG TAB.ER.24H PO SCH (07:42)
[2019-06-09] MEDS: Aspirin Enteric Coated 81 MG Tablet PO SCH (07:42)
[2019-06-09] MEDS: *HR* Heparin 5,000 UNIT/ML VIAL SQ SCH ×3 (07:43→21:49)
[2019-06-09] MEDS: Armodafinil [Nuvigil] 250 MG PO SCH (07:44)
[2019-06-09] MEDS: Furosemide 40 MG/4 ML VIAL IVP SCH ×2 (07:44→19:48)
[2019-06-09] MEDS ORDERED: Divalproex (24 HR) 500 MG TABLET PO SCH (09:00)
[2019-06-09] MEDS: Insulin LISPRO 300 UNITS/3 ML VIAL SQ SCH ×3 (13:20→21:50)
[2019-06-09] MEDS: Famotidine 20 MG TABLET PO SCH (21:49)
[2019-06-09] MEDS: Divalproex (24 HR) 500 MG TABLET PO SCH (21:49)
[2019-06-09] MEDS: Insulin DETEMIR 100 UNIT/ML X5UNITS SQ SCH (22:46)
[2019-06-10 03:44] LABS: Basophils % 0.3 %; Eosinophils % 0.5 %; Hematocrit 35.2 % (37.5-50.1); Immature Granulocytes % 0.3 % (0-4); Lymphocytes # 2.5 K/mcL (0.6-4.6); Lymphocytes % 37.3 %; Mean Corpuscular HGB Conc 31.3 g/dL (31.6-35.5); Mean Corpuscular Hemoglobin 30.7 pg (28.0-33.3); Mean Corpuscular Volume 98.3 fL (83.0-100.0); Mean Platelet Volume 10.6 fL (9.4-12.4); Monocytes # 0.7 K/mcL (0.0-1.3); Monocytes % 10.8 %; Neutrophils # 3.3 K/mcL (1.6-8.9); Platelet Count 140 K/mcL (140-400); Red Blood Count 3.58 M/mcL (4.19-5.50); Segmented Neutrophils % 50.8 %; White Blood Count 6.6 K/mcL (4.3-11.1)
[2019-06-10 03:46] LABS: Prothrombin Time 11.4 Seconds (9.4-12.1)
[2019-06-10 04:06] LABS: Alanine Aminotransferase 14 Units/L (7-52); Albumin 3.7 g/dL (3.5-5.7); Albumin/Globulin Ratio 1.6 (1.1-2.2); Alkaline Phosphatase 40 Units/L (34-104); Aspartate Amino Transferase 11 Units/L (13-39); BUN/Creatinine Ratio 30 (6-26); Bilirubin,Total 0.4 mg/dL (0.3-1.0); Blood Urea Nitrogen 25 mg/dL (8-23); Calcium 8.5 mg/dL (8.6-10.3); Carbon Dioxide 25 mEq/L (23-29); Chloride 103 mEq/L (98-107); Cholesterol 140 mg/dL (< 200); Globulin 2.3 g/dL (2.4-3.5); Glucose 141 mg/dL (70-105); HDL Cholesterol 46 mg/dL (40-59); LDL Cholesterol,Calculated 66 mg/dL (0-99); Magnesium 1.9 mg/dL (1.6-2.6); Osmolality,Calculated 289 (280-300); Phosphorous 3.3 mg/dL (2.7-4.5); Potassium 4.1 mEq/L (3.5-5.1); Sodium 136 mEq/L (136-145); Triglycerides 139 mg/dL (< 150); eGFR For African Americans > 60 (> 60); eGFR For Non-African Americans > 60 (> 60)
[2019-06-10 04:15] LABS: Thyroid Stimulating Hormone 0.601 mcIU/mL (0.340-5.600)
[2019-06-10] MEDS: *HR* Heparin 5,000 UNIT/ML VIAL SQ SCH ×3 (06:22→21:38)
[2019-06-10 06:50] LABS: Bilirubin,Urine Negative (Negative); Blood,Urine Negative (Negative); Clarity,Urine Clear (Clear); Color,Urine Yellow (Yellow); Glucose,Urine (UA) 100 mg/dL (Normal); Ketones,Urine Trace mg/dL (Negative); Leukocyte Esterase,Urine Negative (Negative); Nitrite,Urine Negative (Negative); PH,Urine 7.5 pH Units (5.0-8.0); Protein,Urine Trace mg/dL (Neg-Trace); Specific Gravity,Urine 1.028 (1.010-1.025); Urobilinogen,Urine Normal (Normal)
[2019-06-10] MEDS: Aspirin Enteric Coated 81 MG Tablet PO SCH (08:39)
[2019-06-10] MEDS: Isosorbide MONOnitrate (24 HR) 60 MG TAB.ER.24H PO SCH (08:39)
[2019-06-10] MEDS: Furosemide 40 MG/4 ML VIAL IVP SCH ×2 (08:40→18:05)
[2019-06-10] MEDS: Armodafinil [Nuvigil] 250 MG PO SCH (08:44)
[2019-06-10] MEDS: Insulin LISPRO 300 UNITS/3 ML VIAL SQ SCH ×4 (08:44→21:41)
[2019-06-10 11:02] LABS: Estimated Average Glucose 212 mg/dl
[2019-06-10] MEDS: Famotidine 20 MG TABLET PO SCH (21:37)
[2019-06-10] MEDS: Divalproex (24 HR) 500 MG TABLET PO SCH (21:37)
[2019-06-10] MEDS: Insulin DETEMIR 100 UNIT/ML X5UNITS SQ SCH (21:38)
[2019-06-11 04:54] LABS: Basophils % 0.2 %; Eosinophils % 0.8 %; Hematocrit 32.8 % (37.5-50.1); Hemoglobin 10.5 g/dL (12.9-16.9); Immature Granulocytes % 0.4 % (0-4); Lymphocytes # 2.4 K/mcL (0.6-4.6); Lymphocytes % 48.6 %; Mean Corpuscular Hemoglobin 31.2 pg (28.0-33.3); Mean Corpuscular Volume 97.3 fL (83.0-100.0); Mean Platelet Volume 10.5 fL (9.4-12.4); Monocytes # 0.6 K/mcL (0.0-1.3); Monocytes % 11.8 %; Neutrophils # 1.9 K/mcL (1.6-8.9); Platelet Count 126 K/mcL (140-400); Red Blood Count 3.37 M/mcL (4.19-5.50); Red Cell Distribution Width 14.9 % (11.5-14.5); Segmented Neutrophils % 38.2 %; White Blood Count 4.8 K/mcL (4.3-11.1)
[2019-06-11 05:17] LABS: BUN/Creatinine Ratio 32 (6-26); Blood Urea Nitrogen 30 mg/dL (8-23); Calcium 8.5 mg/dL (8.6-10.3); Carbon Dioxide 28 mEq/L (23-29); Chloride 101 mEq/L (98-107); Glucose 78 mg/dL (70-105); Osmolality,Calculated 291 (280-300); Phosphorous 4.2 mg/dL (2.7-4.5); Sodium 138 mEq/L (136-145); eGFR For African Americans > 60 (> 60); eGFR For Non-African Americans > 60 (> 60)
[2019-06-11] MEDS: *HR* Heparin 5,000 UNIT/ML VIAL SQ SCH ×3 (05:19→21:31)
[2019-06-11] MEDS: Insulin LISPRO 300 UNITS/3 ML VIAL SQ SCH ×4 (10:08→21:32)
[2019-06-11] MEDS: Aspirin Enteric Coated 81 MG Tablet PO SCH (10:24)
[2019-06-11] MEDS: Furosemide 40 MG/4 ML VIAL IVP SCH ×2 (10:24→16:44)
[2019-06-11] MEDS: Armodafinil [Nuvigil] 250 MG PO SCH (10:26)
[2019-06-11] MEDS: Isosorbide MONOnitrate (24 HR) 60 MG TAB.ER.24H PO SCH (10:26)
[2019-06-11] MEDS ORDERED: Insulin DETEMIR 100 UNIT/ML X5UNITS SQ SCH (21:00)
[2019-06-11] MEDS: Famotidine 20 MG TABLET PO SCH (21:30)
[2019-06-11] MEDS: Divalproex (24 HR) 500 MG TABLET PO SCH (21:31)
[2019-06-12 04:37] LABS: BUN/Creatinine Ratio 34 (6-26); Blood Urea Nitrogen 33 mg/dL (8-23); Calcium 8.5 mg/dL (8.6-10.3); Carbon Dioxide 27 mEq/L (23-29); Chloride 103 mEq/L (98-107); Glucose 153 mg/dL (70-105); Osmolality,Calculated 294 (280-300); Potassium 4.2 mEq/L (3.5-5.1); Sodium 137 mEq/L (136-145); eGFR For African Americans > 60 (> 60); eGFR For Non-African Americans > 60 (> 60)
[2019-06-12] MEDS: *HR* Heparin 5,000 UNIT/ML VIAL SQ SCH (05:55)
[2019-06-12 06:55] VITALS: BP 110/65
[2019-06-12] MEDS: Insulin LISPRO 300 UNITS/3 ML VIAL SQ SCH (09:15)
[2019-06-12] MEDS: Furosemide 40 MG/4 ML VIAL IVP SCH (09:16)
[2019-06-12] MEDS: Isosorbide MONOnitrate (24 HR) 60 MG TAB.ER.24H PO SCH (09:17)
[2019-06-12] MEDS: Aspirin Enteric Coated 81 MG Tablet PO SCH (09:17)
== END 2019-06-12 14:20 | disposition home health service (06) | DRG 280 ==
LOC: EMEROOARM 01:28 → 2NENU 01:28 → SUATTDRO 05:23 → 2NENU 06:28
PROVIDERS: ADMIT Internal Medicine; ATTEND Internal Medicine